=== PATIENT | female | born 1970 | race Caucasian/White ===

== ENCOUNTER → 2019-05-30 16:38 | Outpatient (CLI) | payer OTHER, SELFPAY ==
[2019-05-30 17:08] LABS: Strep Grp A by PCR Rapid Negative
== END ==
PROVIDERS: Visit Provider Physician Assistant
DX: J02.9 Acute pharyngitis, unspecified (principal)
CPT/HCPCS: 87070; 87651

== ENCOUNTER → 2020-07-21 08:54 | Outpatient (CLI) | payer OTHER, SELFPAY ==
[2020-07-21] MEDS: COVID-19 VACC #1, MRNA(MOD) 100 MCG/0.5 ML VIAL IM (09:08)
== END ==
PROVIDERS: Visit Provider Internal Medicine
DX: Z23 Encounter for immunization (principal)
CPT/HCPCS: 0011A; 91301

== ENCOUNTER → 2020-08-18 08:58 | Outpatient (CLI) | payer OTHER, SELFPAY ==
[2020-08-18] MEDS: COVID-19 VACC #2, MRNA(MOD) 100 MCG/0.5 ML VIAL IM (09:04)
== END ==
PROVIDERS: Visit Provider Internal Medicine
DX: Z23 Encounter for immunization (principal)
CPT/HCPCS: 0012A; 91301

== ENCOUNTER → 2020-09-26 09:25 | Outpatient (CLI) | payer OTHER, SELFPAY ==
--- NOTE | 2020-09-26 09:26 | DI.RAD.S_ITS ---
PROCEDURE: XR FOOT LT MIN 3V INDICATIONS: L foot injury, pain, swelling TECHNIQUE: 3 views of the foot were acquired. COMPARISON: None. FINDINGS: Bones: No fractures or dislocations. Bipartite tibial sesamoid bone. Small plantar calcaneal spur. No suspicious bony lesions. Soft tissues: No tibiotalar joint effusion. Achilles tendon appears normal. IMPRESSION: No acute osseous abnormality. Dictated by: Dharmesh Pierre M.D. on 09/26/2020 at 10:09 Approved by: Dharmesh Pierre M.D. on 09/26/2020 at 10:11
== END ==
PROVIDERS: PCP Family Medicine; Referring Provider Physician Assistant; Visit Provider Physician Assistant
DX: S99.922A Unspecified injury of left foot, initial encounter (principal)
CPT/HCPCS: 73630

== ENCOUNTER 2021-12-16 14:25 | Emergency (ER) | payer OTHER, SELFPAY ==
[2021-12-16 14:34] VITALS: BP 166/98; PULSE 77; RESP 16; TEMP 36.6; O2SAT 100
[2021-12-16 14:52] LABS: Add Manual Diff / Slide Review NO; Basophils Absolute Auto 0 /uL (0-100); Basophils Percent Auto 0.6 % (0-2); Eosinophils Absolute Auto 200 /uL (0-450); Eosinophils Percent Auto 4.5 % (2-4); Hematocrit 39.8 % (36-46); Hemoglobin 13.9 g/dL (12.0-16.0); Lymphocytes Absolute Auto 1500 /uL (1100-4500); Lymphocytes Percent Auto 27.2 % (25-40); Mean Corpuscular HGB Conc 35.1 % (30-36); Mean Corpuscular Hemoglobin 31.1 PG (26-34); Mean Corpuscular Volume 88.8 fL (80-100); Monocytes Absolute Auto 400 /uL (0-900); Monocytes Percent Auto 7.8 % (3-14); Neutrophils Absolute Auto 3300 /uL (1500-7000); Neutrophils Percent Auto 59.9 % (50-75); Platelet Count 219 X10^3/uL (150-400); Red Blood Cell Count 4.48 X10^6/uL (4.0-5.2); Red Cell Distribution Width 12.3 % (11.6-14.8); White Blood Cell Count 5.5 X10^3/uL (4.5-11.0)
--- NOTE | 2021-12-16 14:52 | DI.US.S_ITS ---
PROCEDURE: US ABDOMEN LIMITED INDICATIONS: RIGHT UPPER QUADRANT PAIN. TECHNIQUE: Real-time scanning was performed of the abdominal and retroperitoneal organs, with image documentation. COMPARISON: None. FINDINGS: Liver: Homogeneous echotexture. No evidence of focal mass lesion. No intra hepatic biliary ductal dilatation Gallbladder: Gallbladder distension. Cholelithiasis noted. No gallbladder wall thickening, pericholecystic fluid or Ag sign Common Bile Duct: 4.8 mm. Pancreas: Pancreatic simple cyst measures 4.84.1 mm IMPRESSION: 1. Cholelithiasis and distended gallbladder without ultrasound evidence of acute cholecystitis. 2. Incidental tiny pancreatic simple cyst Approved by: Mike Maria M.D. on 12/16/2021 at 15:02
[2021-12-16 15:01] LABS: Alanine Aminotransferase 21 IU/L (<35); Albumin 4.4 g/dL (3.5-5.0); Albumin Globulin Ratio 1.6 (1.0-2.8); Alkaline Phosphatase 64 U/L (38-126); Aspartate Aminotransferase 26 IU/L (14-36); BUN Creatinine Ratio 14.9 (6-22); Bilirubin Total 0.4 mg/dL (0.2-1.3); Blood Urea Nitrogen 11 mg/dL (7-17); Calcium 9.2 mg/dL (8.4-10.2); Carbon Dioxide 25 mmol/L (22-32); Chloride 107 mmol/L (98-107); Estimated Glomerular Filt Rate > 60 mL/min (>60); Globulin 2.7 g/dL (1.7-4.1); Glucose 106 mg/dL (70-100); HEMOLYSIS < 15 (0-50); Lipase 91 U/L (23-300); Sodium 138 mmol/L (137-145); Total Protein 7.1 g/dL (6.3-8.2)
--- NOTE | 2021-12-16 19:27 | ED_ITS ---
HPI - General Adult General Chief complaint: Abdominal Pain Stated complaint: Rt Adb Pain/Dizzy/Nausea Time Seen by Provider: 12/16/21 19:26 Source: patient Mode of arrival: Ambulatory History of Present Illness HPI narrative: Otherwise healthy postmenopausal 51-year-old woman presents with acute right upper abdominal pain that radiates through to her back starting around noon today after eating a bagel with avocado. She has not had previous symptoms or problems. She denies fever, cough, chills, vomiting, diarrhea, change to the color of her stools, rashes, chest pain, palpitations. She has not had abdominal surgery and does still have her gallbladder in place. Related Data Home Medications Medication Instructions Recorded Confirmed acetaminophen 325 mg capsule 650 mg PO Q6H PRN 05/30/19 09/26/20 (Tylenol) ibuprofen 200 mg capsule 400 mg PO Q8H PRN 05/30/19 09/26/20 Allergies Allergy/AdvReac Type Severity Reaction Status Date / Time No Known Drug Allergies Allergy Unverified 09/26/20 09:05 Review of Systems Review of Systems Narrative: Remainder of complete review of systems is otherwise unremarkable except for karena t included in the HPI. Patient History Medical History Hemorrhoid Social History Smoking Status: Former smoker Smoking Status: Former smoker Exam Initial Vital Signs Initial Vital Signs: Vital Signs Temperature 97.9 F 12/16/21 14:34 Pulse Rate 77 12/16/21 14:34 Respiratory Rate 16 12/16/21 14:34 Blood Pressure 166/98 H 12/16/21 14:34 Pulse Oximetry 100 12/16/21 14:34 Oxygen Delivery Method 12/16/21 14:34 General: Healthy appearing, in no acute distress. Able to give a complete and coherent history. Well-nourished well-developed HEENT: Moist mucous membranes, normal sclera with reactive pupils, Respiratory: Lungs are clear to auscultation, no wheezing no rales no rhonchi. Full and symmetrical air movement Cardiac: Regular rate and rhythm no murmurs no bruits Abdomen: Soft, right upper quadrant tenderness without rebound or guarding, good bowel tones, no flank pain Skin: Warm and dry, no rashes Neurologic: Grossly neurologically intact with no obvious asymmetries or abnormalities Extremities: No trauma, well perfused Psych: Cooperative, appropriate insight and affect Course Orders Ordered: ED Orders 12/16/21 14:37 EKG-12 Lead Stat 12/16/21 14:43 Complete Blood Count AUTO DIFF Stat Comprehensive Metabolic Panel Stat Lipase Stat 12/16/21 14:52 US abdomen limited Stat Ketorolac Tromethamine (Ketorolac 30 Mg/Ml Vial) 15 mg IV NOW ONE Stop: 12/16/21 19:40 Oxycodone/Acetaminophen (Oxycodone/Acetaminophen 5/325 Tablet) 1 tab PO NOW ONE Stop: 12/16/21 19:40 Oxycodone/Acetaminophen (Oxycodone/Apap 5/325 Prepack) 1 bottle MISC SEEINSTR ONE Stop: 12/16/21 19:40 Vital Signs Vital signs: Vital Signs - 8 hr 12/16/21 14:34 Temperature 97.9 F Pulse Rate 77 Respiratory Rate 16 Blood Pressure 166/98 H Pulse Oximetry 100 Oxygen Delivery Method Room Air Medical Decision Making Lab Data Result diagrams: 12/16/21 14:43 12/16/21 14:43 Labs: Lab Results 12/16/21 12/16/21 Range/Units 14:43 14:43 WBC 5.5 (4.5-11.0) X10^3/uL RBC 4.48 (4.0-5.2) X10^6/uL Hgb 13.9 (12.0-16.0) g/dL Hct 39.8 (36-46) % MCV 88.8 (80-100) fL MCH 31.1 (26-34) PG MCHC 35.1 (30-36) % RDW 12.3 (11.6-14.8) % Plt Count 219 (150-400) X10^3/uL Neut % (Auto) 59.9 (50-75) % Lymph % (Auto) 27.2 (25-40) % Garland % (Auto) 7.8 (3-14) % Eos % (Auto) 4.5 H (2-4) % Baso % (Auto) 0.6 (0-2) % Neut # (Auto) 3300 (1051-8434) /uL Lymph # (Auto) 1500 (9539-6633) /uL Garland # (Auto) 400 (0-900) /uL Eos # (Auto) 200 (0-450) /uL Baso # (Auto) 0 (0-100) /uL Sodium 138 (137-145) mmol/L Potassium 4.0 (3.4-5.1) mmol/L Chloride 107 (98-107) mmol/L Carbon Dioxide 25 (22-32) mmol/L BUN 11 (7-17) mg/dL Creatinine 0.74 (0.52-1.04) mg/dL Estimated GFR > 60 (>60) mL/min BUN/Creatinine Ratio 14.9 (6-22) Glucose 106 H (70-100) mg/dL Calcium 9.2 (8.4-10.2) mg/dL Total Bilirubin 0.4 (0.2-1.3) mg/dL AST 26 (14-36) IU/L ALT 21 (<35) IU/L Alkaline Phosphatase 64 (38-126) U/L Total Protein 7.1 (6.3-8.2) g/dL Albumin 4.4 (3.5-5.0) g/dL Globulin 2.7 (1.7-4.1) g/dL Albumin/Globulin Ratio 1.6 (1.0-2.8) Lipase 91 (23-300) U/L Urine Dip Bedside Urine Glucose Negative Bedside Urine Bilirubin - Negative Bedside Urine Ketone - Negative Urine Specific Astor 1.015 Bedside Urine Occult Blood - Negative Bedside Urine pH 8.0 Bedside Urine Protein - Negative Bedside Urine Urobilinogen - Negative Bedside Urine Nitrite - Negative Bedside Urine Leukocytes - Negative Esterase Point of care testing: Urine Dip Bedside Urine Glucose Negative Bedside Urine Bilirubin - Negative Bedside Urine Ketone - Negative Urine Specific Astor 1.015 Bedside Urine Occult Blood - Negative Bedside Urine pH 8.0 Bedside Urine Protein - Negative Bedside Urine Urobilinogen - Negative Bedside Urine Nitrite - Negative Bedside Urine Leukocytes - Negative Esterase Imaging Data US - abdomen: Radiologist's Impression: FINDINGS: ? Liver:? Homogeneous echotexture.? No evidence of focal mass lesion.? No intra hepatic biliary ductal dilatation ? Gallbladder:? Gallbladder distension.? Cholelithiasis noted.? No gallbladder wall thickening, pericholecystic fluid or Ag sign ? Common Bile Duct:? 4.8 mm. ? Pancreas:? Pancreatic simple cyst measures 4.84.1 mm ? ? ? IMPRESSION: ? 1. Cholelithiasis and distended gallbladder without ultrasound evidence of acute cholecystitis. ? 2. Incidental tiny pancreatic simple cyst ? Approved by: Mike Maria M.D. on 12/16/2021 at 15:02? MDM Narrative Medical decision making narrative: 51-year-old woman with rather classic presentation for cholelithiasis. Today there is no evidence for acute cholecystitis or stones stuck in the neck of the gallbladder. Reviewed diagnosis and findings with her. She will be discharged with small amount of Percocet and instructions to follow-up with [facility] tomorrow. Clearly reviewed with her signs and symptoms of worsening gallbladder symptoms and reasons to return to the emergency department. Questions are answered and she is safe for home discharge Discharge Plan Departure Patient Disposition: Home Clinical Impression: Cholelithiasis Qualifiers: Cholelithiasis location: gallbladder Cholecystitis presence: without cholecystitis Biliary obstruction: without biliary obstruction Qualified Code(s): K80.20 - Calculus of gallbladder without cholecystitis without obst ruction Instructions: DI for Gallstones Activity Restrictions/Additional Instructions: Thank you for coming in today Your ultrasound shows that you have gallstones. These are not currently obstructing and you do not currently have a sick gallbladder, cholecystitis, your lab work is reassuring. I have given you a dose of Toradol and will send you home with small amount of Percocet to help with severe pain. Using 400 mg of ibuprofen (2 txoz-dij-mrndbya pills) and 1 Tylenol every 6 hours can be very helpful in controlling pain and for severe pain 400 mg of ibuprofen and 1 Percocet. At this point, you do not need to emergently have your gallbladder out however do need to be seen by [facility] and discuss when you should have her gallbladder out. Please call their office tomorrow at [phone] and explain your in the emergency department, diagnosed with gallstones and would like to schedule a consultation. If you find that the pain is getting worse, your having persistent vomiting, you develop a fever or your noticing any yellowness, jaundice, to your skin need to return to the emergency department. These are all signs that your gallbladder is actually getting sick an you may need to have an emergent cholecystectomy. Prescriptions: No Action acetaminophen [Tylenol] 325 mg capsule 650 mg PO Q6H PRN ibuprofen 200 mg capsule 400 mg PO Q8H PRN Referrals: Kimberley Yan DO [Primary Care Provider] -
[2021-12-16] MEDS: OXYCODONE/APAP 5/325 PREPACK 1 BOTTLE MISC (19:53)
[2021-12-16] MEDS: OXYCODONE/ACETAMINOPHEN 5/325 TABLET 1 TAB PO (19:54)
[2021-12-16] MEDS: KETOROLAC 30 MG/ML VIAL 15 MG IV (19:54)
[2021-12-16 19:58] VITALS: BP 170/95; PULSE 67; RESP 20; TEMP 36.9; O2SAT 100
== END 2021-12-16 20:16 | disposition home or self-care (01) ==
PROVIDERS: Emergency Medicine; Emergency Provider Emergency Medicine; PCP Family Medicine
DX: K80.20 Calculus of gallbladder without cholecystitis without obstruction (principal)
CPT/HCPCS: 36415; 76705; 80053; 81003; 83690; 85025; 96374; 99284; J1885

== ENCOUNTER 2022-01-02 18:30 | Emergency (ER) | payer OTHER, SELFPAY ==
[2022-01-02 18:38] VITALS: BP 161/98; PULSE 90; RESP 16; TEMP 37.1; O2SAT 100; BMI 22.1
--- NOTE | 2022-01-02 18:44 | DI.US.S_ITS ---
PROCEDURE: US ABDOMEN LIMITED INDICATIONS: RUQ PAIN TECHNIQUE: Real-time focused scanning was performed of the abdomen, with image documentation. COMPARISON: [facility], CT, CT CHEST ABDOMEN PELVIS WITH CONTRAST, 04/24/2021, 10:32. [facility], US, US ABDOMEN LIMITED, 12/16/2021, 15:19. FINDINGS: The included liver is normal in size and echogenicity. A single 9 mm shadowing calculus is seen within the gallbladder. No gallbladder wall thickening or pericholecystic fluid. Sonographic Ag sign is positive. A nonspecific 0.4 cm simple appearing cyst is seen in the pancreas as previously noted. IMPRESSION: 1. Cholelithiasis with positive sonographic Ag sign, but no gallbladder wall thickening or pericholecystic fluid. Acute cholecystitis is felt to be less likely, but is not entirely excluded. 2. Stable nonspecific 4 mm pancreatic cyst. Dictated by: Sesar Ivey M.D. on 01/02/2022 at 19:00 Approved by: Sesar Ivey M.D. on 01/02/2022 at 19:04
--- NOTE | 2022-01-02 18:52 | ED_ITS ---
HPI - Abdominal Pain General Chief Complaint: Abdominal Pain Stated Complaint: PAIN RT. SIDE ABD. HX GALLSTONES Time Seen by Provider: 01/02/22 18:44 Mode of arrival: Family Vehicle History of Present Illness HPI narrative: 51-year-old female former smoker with a known gallstone presents with a chief complaint of severe and worsening right upper quadrant pain over the past 24 hours. She is been seen and evaluated and has ultrasound demonstrating gallstones and has been in touch with Dr. Issa and is scheduled for surgery in a few weeks. She states that she started having increasing and more persistent pain last night and today it is significantly worse. She states the pain is made worse by motion as well as food and drink. It seems to improve with rest. She states that it is severe and burning in nature today. Radiates to her back. She is been significantly nauseated but denies any vomiting. She denies any fever or chills. She has no chest pain or shortness of breath and denies any constipation or diarrhea. Her last food and drink was at 2:00 p.m. today Related Data Home Medications Medication Instructions Recorded Confirmed acetaminophen 325 mg capsule 650 mg PO Q6H PRN 05/30/19 12/28/21 (Tylenol) ibuprofen 200 mg capsule 400 mg PO Q8H PRN 05/30/19 12/28/21 Previous Rx's Medication Instructions Recorded hydrocodone 5 mg-acetaminophen 325 1 tab PO Q4-6H PRN pain #10 tabs 01/02/22 mg tablet ondansetron 4 mg disintegrating 4 mg PO TID-QID PRN nausea and 01/02/22 tablet vomiting #10 tabs Allergies Allergy/AdvReac Type Severity Reaction Status Date / Time No Known Drug Allergies Allergy Unverified 01/02/22 18:40 Review of Systems Review of Systems Narrative: GENERAL: Denies chills, fatigue, malaise, fever, sweats. HEENT: Denies sinus pain, ear pain, sore throat, difficulty swallowing, dizziness. RESPIRATORY: Denies dyspnea, cough, wheezing, hemoptysis, sputum. CARDIOVASCULAR: Denies chest pain, palpitations, orthopnea, edema, GASTROINTESTINAL: See HPI : Denies dysuria, frequency, incontinence, hematuria, urinary retention. MUSCULOSKELETAL: denies weakness, joint pain, or bony pain SKIN: Denies rash, skin lesions, or other NEUROLOGIC: Denies weakness, headache, numbness, change in speech, confusion, seizures, incoordination. PSYCHIATRIC: No concerning psychosocial issues. 12 point review of systems is negative except for those stated above Patient History Medical History Hemorrhoid Surgical History H/O tubal ligation Social History Smoking Status: Former smoker Smoking Status: Former smoker alcohol intake frequency: holidays/special occasions only Substance Use Type: does not use Exam Narrative Exam Narrative: GENERAL: [51] year old patient appears stated age. Well-developed patient, in mild distress. HEAD: Atraumatic. Normocephalic. EYES: Pupils equal round and reactive. Extraocular motions intact. No scleral icterus. No injection or drainage. ENT: Nose without bleeding, purulent drainage. Throat without erythema, tonsillar hypertrophy or exudate. Airway patent. NECK: Trachea midline. Non tender CARDIOVASCULAR: Regular rate and rhythm without murmurs, gallops, or rubs. RESPIRATORY: Clear to auscultation. Breath sounds equal bilaterally. No wheezes, rales, or rhonchi. GASTROINTESTINAL: Abdomen soft, severe epigastric and right upper quadrant pain, positive Ag sign nondistended. EXTREMITIES: No edema or joint tenderness. BACK: Nontender without deformity or crepitance. No flank tenderness. NEURO: AOx3. SKIN: No rash or erythema of visible areas Initial Vital Signs Initial Vital Signs: Vital Signs Temperature 98.7 F 01/02/22 18:38 Pulse Rate 90 01/02/22 18:38 Respiratory Rate 16 01/02/22 18:38 Blood Pressure 161/98 H 01/02/22 18:38 Pulse Oximetry 100 01/02/22 18:38 Oxygen Delivery Method 01/02/22 18:38 Course Orders Ordered: ED Orders 01/02/22 18:44 US abdomen limited Stat 01/02/22 19:00 Complete Blood Count AUTO DIFF Stat Comprehensive Metabolic Panel Stat Lipase Stat Discontinued Medications Hydrocodone Bitart/Acetaminophen (Hydrocodone/Acet 5/325 Prepack) 1 bottle MISC SEEINSTR ONE Stop: 01/02/22 20:42 Last Admin: 01/02/22 20:49 Dose: 1 bottle Documented By: MEGHNA Hydromorphone HCl (Hydromorphone 0.5 Mg Inj) 0.5 mg IV NOW ONE Stop: 01/02/22 18:52 Last Admin: 01/02/22 19:10 Dose: 0.5 mg Documented By: JO ANN Sodium Chloride (Normal Saline 0.9%) 1,000 mls @ 150 mls/hr IV CONT NENA Last Infusion: 01/02/22 21:05 Dose: 0 mls/hr Documented By: Admin: 01/02/22 19:10 Dose: 150 mls/hr Documented By: JO ANN Ondansetron HCl (Ondansetron 4 Mg/2 Ml Inj) 4 mg IV NOW ONE Stop: 01/02/22 18:52 Last Admin: 01/02/22 19:10 Dose: 4 mg Documented By: JO ANN Ondansetron HCl (Ondansetron 4 Mg Odt Prepack) 1 bottle MISC SEEINSTR ONE Stop: 01/02/22 20:42 Last Admin: 01/02/22 20:50 Dose: 1 bottle Documented By: MEGHNA Vital Signs Vital signs: Vital Signs - 8 hr 01/02/22 18:38 01/02/22 19:55 01/02/22 19:59 Temperature 98.7 F Pulse Rate 90 67 Respiratory Rate 16 18 Blood Pressure 161/98 H 150/87 H Pulse Oximetry 100 Oxygen Delivery Method Room Air 01/02/22 19:59 01/02/22 20:00 01/02/22 20:00 Temperature Pulse Rate 65 70 Respiratory Rate 12 Blood Pressure 153/94 H Pulse Oximetry 100 99 Oxygen Delivery Method 01/02/22 20:30 01/02/22 20:30 Temperature Pulse Rate 69 Respiratory Rate 20 Blood Pressure 151/88 H Pulse Oximetry 98 Oxygen Delivery Method MDM - Abdominal Pain Lab Data Result diagrams: 01/02/22 19:00 01/02/22 19:00 Labs: Lab Results 01/02/22 01/02/22 Range/Units 19:00 19:00 WBC 6.5 (4.5-11.0) X10^3/uL RBC 4.78 (4.0-5.2) X10^6/uL Hgb 14.7 (12.0-16.0) g/dL Hct 42.5 (36-46) % MCV 89.0 (80-100) fL MCH 30.7 (26-34) PG MCHC 34.5 (30-36) % RDW 12.2 (11.6-14.8) % Plt Count 228 (150-400) X10^3/uL Neut % (Auto) 43.9 L (50-75) % Lymph % (Auto) 41.7 H (25-40) % Ray % (Auto) 6.6 (3-14) % Eos % (Auto) 6.5 H (2-4) % Baso % (Auto) 1.3 (0-2) % Neut # (Auto) 2900 (3366-4832) /uL Lymph # (Auto) 2700 (4476-9874) /uL Ray # (Auto) 400 (0-900) /uL Eos # (Auto) 400 (0-450) /uL Baso # (Auto) 100 (0-100) /uL Sodium 138 (137-145) mmol/L Potassium 3.7 (3.4-5.1) mmol/L Chloride 104 (98-107) mmol/L Carbon Dioxide 25 (22-32) mmol/L BUN 12 (7-17) mg/dL Creatinine 0.93 (0.52-1.04) mg/dL Estimated GFR > 60 (>60) mL/min BUN/Creatinine Ratio 12.9 (6-22) Glucose 89 (70-100) mg/dL Calcium 9.4 (8.4-10.2) mg/dL Total Bilirubin 0.5 (0.2-1.3) mg/dL AST 25 (14-36) IU/L ALT 18 (<35) IU/L Alkaline Phosphatase 70 (38-126) U/L Total Protein 7.8 (6.3-8.2) g/dL Albumin 4.9 (3.5-5.0) g/dL Globulin 2.9 (1.7-4.1) g/dL Albumin/Globulin Ratio 1.7 (1.0-2.8) Lipase 217 (23-300) U/L [facility] Narrative Medical decision making narrative: Patient with known gallbladder disease presents with worsening right upper quadrant pain with radiation to her back. It is worse when she moves and worse when she eats. Thankfully, labs and ultrasound are reassuring and there is no evidence of the need for emergent surgery. Her pain is well controlled and she is tolerating orals. She is given extensive return precautions and questions have been answered to her apparent satisfaction Discharge Plan Departure Patient Disposition: Home Clinical Impression: Gallbladder pain Instructions: Gallstones Activity Restrictions/Additional Instructions: *You have been diagnosed with [abdominal pain likely due to gallstones] * As we discussed your history and physical exam as well as labs and imaging are very reassuring. There is no evidence of any severe diagnoses that would require a specific or immediate intervention. *What to do: *Please continue to take your regular medications as directed. [x ] New medication prescriptions sent to your pharmacy: [[facility]] *Please follow up with Dr. Issa as plannedLet them know you were seen in the Emergency Department and that we ask that you be seen in follow up. We will electronically transmit a record of today's note *Please consider a clear liquid diet for the next 24-48 hours and then slowly advance to regular as tolerated. Also, try to avoid alcohol, nicotine, caffeine, spicy, acidic or fatty foods as this may worsen your symptoms *Return to Emergency Department if you should have any new, worsening or concerning symptoms, such as [fever greater than 101 F, shaking chills, worsening pain, persistent vomiting or other bothersome symptoms] Prescriptions: New hydrocodone-acetaminophen 5-325 mg tablet 1 tab PO Q4-6H PRN (Reason: pain) Qty: 10 0RF ondansetron 4 mg tablet,disintegrating 4 mg PO TID-QID PRN (Reason: nausea and vomiting) Qty: 10 0RF No Action acetaminophen [Tylenol] 325 mg capsule 650 mg PO Q6H PRN ibuprofen 200 mg capsule 400 mg PO Q8H PRN Referrals: Liseth Singh PA-C [Primary Care Provider] - Visit Report Forms: Patient Portal/API
[2022-01-02] MEDS: HYDROMORPHONE 0.5 MG INJ IV (19:10)
[2022-01-02] MEDS: SODIUM CHLORIDE 0.9% 1,000 ML 150 ML IV (19:10)
[2022-01-02] MEDS: ONDANSETRON 4 MG/2 ML INJ IV (19:10)
[2022-01-02 19:14] LABS: Add Manual Diff / Slide Review NO; Basophils Absolute Auto 100 /uL (0-100); Basophils Percent Auto 1.3 % (0-2); Eosinophils Absolute Auto 400 /uL (0-450); Eosinophils Percent Auto 6.5 % (2-4); Hematocrit 42.5 % (36-46); Hemoglobin 14.7 g/dL (12.0-16.0); Lymphocytes Absolute Auto 2700 /uL (1100-4500); Lymphocytes Percent Auto 41.7 % (25-40); Mean Corpuscular HGB Conc 34.5 % (30-36); Mean Corpuscular Hemoglobin 30.7 PG (26-34); Monocytes Absolute Auto 400 /uL (0-900); Monocytes Percent Auto 6.6 % (3-14); Neutrophils Absolute Auto 2900 /uL (1500-7000); Neutrophils Percent Auto 43.9 % (50-75); Platelet Count 228 X10^3/uL (150-400); Red Blood Cell Count 4.78 X10^6/uL (4.0-5.2); Red Cell Distribution Width 12.2 % (11.6-14.8); White Blood Cell Count 6.5 X10^3/uL (4.5-11.0)
[2022-01-02 19:23] LABS: Alanine Aminotransferase 18 IU/L (<35); Albumin 4.9 g/dL (3.5-5.0); Albumin Globulin Ratio 1.7 (1.0-2.8); Alkaline Phosphatase 70 U/L (38-126); Aspartate Aminotransferase 25 IU/L (14-36); BUN Creatinine Ratio 12.9 (6-22); Bilirubin Total 0.5 mg/dL (0.2-1.3); Blood Urea Nitrogen 12 mg/dL (7-17); Calcium 9.4 mg/dL (8.4-10.2); Carbon Dioxide 25 mmol/L (22-32); Chloride 104 mmol/L (98-107); Estimated Glomerular Filt Rate > 60 mL/min (>60); Globulin 2.9 g/dL (1.7-4.1); Glucose 89 mg/dL (70-100); HEMOLYSIS 16 (0-50); Lipase 217 U/L (23-300); Potassium 3.7 mmol/L (3.4-5.1); Sodium 138 mmol/L (137-145); Total Protein 7.8 g/dL (6.3-8.2)
[2022-01-02 19:55] VITALS: PULSE 67; RESP 18
[2022-01-02 19:59] VITALS: BP 150/87; PULSE 65; O2SAT 100
[2022-01-02 20:00] VITALS: BP 153/94; PULSE 70; RESP 12; O2SAT 99
[2022-01-02 20:30] VITALS: BP 151/88; PULSE 69; RESP 20; O2SAT 98
[2022-01-02] MEDS: HYDROCODONE/ACET 5/325 PREPACK 1 BOTTLE MISC (20:49)
[2022-01-02] MEDS: ONDANSETRON 4 MG ODT PREPACK 1 BOTTLE MISC (20:50)
== END 2022-01-02 21:06 | disposition home or self-care (01) ==
PROVIDERS: Emergency Provider Emergency Medicine; PCP Physician Assistant
DX: K82.9 Disease of gallbladder, unspecified (principal)
CPT/HCPCS: 36415; 76705; 80053; 83690; 85025; 96361; 96374; 96375; 99284; J1170; J2405

== ENCOUNTER → 2022-01-03 10:40 | Outpatient (CLI) | payer OTHER, SELFPAY ==
[2022-01-03 11:30] LABS: COVID19 -Nasal RAPID Negative (Negative)
== END ==
PROVIDERS: PCP Physician Assistant; Visit Provider Surgery
DX: Z01.812 Encounter for preprocedural laboratory examination (principal); Z20.822 Contact with and (suspected) exposure to COVID-19
CPT/HCPCS: 87635; C9803

== ENCOUNTER 2022-01-04 12:34 | Day surgery (SDC) | payer OTHER, SELFPAY ==
[2022-01-03 10:36] VITALS: BMI 22.1
[2022-01-04] VITALS (7 sets, daily range): BP systolic 141–164; BP diastolic 90–99; PULSE 74–120; RESP 10–17; TEMP 36.6–36.9; O2SAT 99–100; BMI 22.1
--- NOTE | 2022-01-04 | PATH_ITS ---
[facility] Accession Number: [id number] . 01 Material submitted: . PART A: gallbladder - GALLBLADDER PART B: liver - RIGHT HEPATIC LOBE MASS . 01 Diagnosis: A. Gallbladder, Cholecystectomy: Chronic cholecystitis, cholesterolosis, and cholelithiasis. One benign cystic duct lymph node (0/1). . B. Right hepatic lobe mass, resection: Benign cavernous hemangioma (3.7 x 2.3 x 1.5 cm). [facility] 01/09/2022 1520 Local . 01 Electronically signed: . Jeana Espinosa MD, Pathologist NPI- [id number] . 01 Gross description: . A. Received in formalin labeled with the patient's name and gallbladder, and consists of an intact gallbladder measuring 6.2 x 2.0 x 1.8 cm. The serosa is green and smooth with all hepatic surfaces rough and unremarkable. The cystic duct is received closed with a clamp, is inked blue, an intact lymph node candidate is identified measuring 1 cm in greatest dimension. Opening the specimen reveals the lumen to be filled with dark green viscous bile, and a single, rough, bosselated, dark green calculus measuring 0.7 cm in greatest dimension. The mucosa is green and velvety with no areas of discoloration, polyps, or lesions identified, and the mejia average 0.2 cm thick. Flight Purser sections to include the cystic duct margin, intact lymph node candidate, and full thickness sections are submitted in cassette A1. . B. Received in formalin labeled with the patient's name and right hepatic lobe mass, and consists of a 7 gram, dark brown, nodular fragment of tissue measuring 3.7 x 2.3 x 1.5 cm. The cauterized margin measures 3.1 cm in length and is inked black. A defect measuring 2.1 cm in length and 1 cm deep is identified opposite the margin and perpendicular to the margin. The capsular surface adjacent to this defect is inked orange. Sectioning reveals a dark brown, congested cut surface with no lesions identified. The specimen is submitted entirely in cassettes B5-B6. ([id number]) /VIVIANA 01/09/2022 1521 Local . 01 Microscopic: . . . 01 Pathologist provided ICD-10: K81.1, D18.03 . 01 CPT . 986767, 588848 Specimen Comment: A courtesy copy of this report has been sent to Pathology Performed at: 01 [facility] [address], [place], [place] [id number] MD Kevin Thompson MD Phone: [phone]
[2022-01-04] MEDS: LACTATED RINGERS 1,000 ML 42 ML IV ×2 (13:21→16:19)
--- NOTE | 2022-01-04 14:54 | PM.PREOP ---
Pre-operative Note COVID-19 COVID-19 status: Negative Interval Note History & Physical reviewed/Exam performed by Physician: Yes Changes to H&P: No ASA Class (for procedural sedation): II
[2022-01-04] MEDS: CEFAZOLIN 2 GM/100 ML PREMIX 100 ML IV (15:23)
--- NOTE | 2022-01-04 15:43 | SUR.OPER ---
Supine on padded OR bed, head on pillow, arms secured on padded arm boards at <90 degrees abduction, legs uncrossed, safety belt at thigh, tape over blanket over lower legs. Foot board in place.
[2022-01-04] MEDS: BUPIVACAINE 0.5% W/ EPI (PF) 30 ML VIAL INJ (15:52)
--- NOTE | 2022-01-04 17:29 | P.OP_ITS ---
Procedure & Clinicians Procedure: laparoscopic cholecystectomy, liver biopsy Same procedure as scheduled: No Indications: 51 year old female presents with typical signs and symptoms of biliary cholic. Surgeon: Adriane Sanchez Click Yes if Unassisted: Yes Anesthesia Type: General Operative Notes Findings: Relatively normal appearing gallbladder with stones. Right hepatic lobe mass. Well circumscribed and vascular appearing. Closure Type: primary Specimen(s): other (1. Right hepatic lobe, 2. gallbladder.) Estimated Blood Loss (mL): 50 Blood products transfused: none Procedure in detail: S is 51-year-old female who presented to the operating room for a cholecystectomy. She had been scheduled a few weeks out but was having a lot of right upper quadrant abdominal pain and had been to the ER twice and therefore wished to have surgery sooner. I was able to accommodate that on my schedule. And I discussed with her her symptoms her workup and her consent for lapa roscopic cholecystectomy including risks benefits and alternatives. She fully understood and wished to proceed with surgery. The patient was taken to the operating room and placed supine on the operating room table with arms extended. A time-out was performed, preoperative antibiotics were provided bilateral SCDs were in place general endotracheal anesthesia was induced the abdomen was prepped and draped in the usual sterile fashion the area below the umbilicus was infused with local anesthetic and incised with an 11 blade scalpel the incision was carried down to the anterior abdominal wall fascia using electrocautery and the fascia was doubly grasped and elevated entered sharply using an 11 blade scalpel under direct visualization Tony trocar was then placed into the abdomen the abdomen was insufflated and inspected. There was no evidence of trocar injury appreciated no fluid in the abdomen the gallbladder was seen and appeared normal. At this point a mass on the right hepatic lobe was seen. It was sort of pedunculated and vascular appearing it seemed well circumscribed. Photographs were taken. At this point I decided to proceed with cholecystectomy and continued on to place the accessory trocars in the usual position subxiphoid subcostal and lateral 3 5 mm incisions were made and trocars were placed. The gallbladder was then grasped and elevated cephalad and dissection of the critical view commenced. I used a combination of electrocautery and Sunni dissectors to create a critical view I then doubly clipped and ligated a accessory artery, the cystic duct. And finally a larger artery behind them. The gallbladder was then relieved from the liver bed using electrocautery. I left a small attachment of the gallbladder as retraction device as I addressed the mass on the hepatic lobe. There were some adhesive attachments which were taken down with sharp scissor. Electrocautery was used for a few very small vascular segments of that. The mass was relieved from the rest of the liver using a LigaSure device. The site of the biopsy was very dry. I did not set the mass down, I continued to hold it while a Endo-Catch bag was placed through the umbilical port site the mass was placed into the bag and the mass was removed. I then replaced the trocar and liberated the remainder of the gallbladder and placed the gallbladder into a bag removed and the usual way. I did need to extend the fascial incision by about 3 mm to accommodate both the mass and the gallbladder. The abdomen was then desufflated. I had previously placed fascial sutures in the umbilical fascia and placed an additional interrupted 0 Vicryl suture be low to accommodate the larger fascial defect. The fascia was then closed and the abdomen the skin was closed with a running Monocryl and dressed with Steri-Strips and Band-Aids. Both the mass and the gallbladder was sent as separate specimens to pathology. Patient tolerated the procedure well in good condition to the postoperative care unit the blood loss was minimal. Complications: none Post-operative Condition: stable Disposition: PACU
[2022-01-04] MEDS: OXYCODONE IR 5 MG TABLET PO (17:39)
[2022-01-04] MEDS: ONDANSETRON 4 MG/2 ML INJ IV (17:39)
[2022-01-04] MEDS: ACETAMINOPHEN 325 MG TABLET 650 MG PO (17:39)
--- NOTE | 2022-01-04 18:29 | SUR.PHASEII ---
181: Pt A&Ox4, denies distress, VSS, right lateral dressing has scant amt of drainage otherwise dressings c/d/i, and ready to discharge home. Discharge instructions reviewed with pt and daughter with time allowed for questions. IV DC'd intact. Pt transported to ER entrance where daughter was waiting to transport pt home. Pt transferred to car independently and was left in daughters care in stable condition.
== END 2022-01-04 18:20 | disposition home or self-care (01) ==
PROVIDERS: PCP Family Medicine; Referring Provider Surgery; Visit Provider Surgery
PROC: 0FT44ZZ Resection of Gallbladder, Percutaneous Endoscopic Approach (ICD-10-PCS; CPT 47562; principal; 2022-01-04 13:45)
DX: K80.10 Calculus of gallbladder with chronic cholecystitis without obstruction (principal); D18.03 Hemangioma of intra-abdominal structures
CPT/HCPCS: 47562; J0690; J1100; J2250; J2405; J2704; J3010

== ENCOUNTER → 2022-01-11 14:46 | Outpatient (CLI) | payer OTHER, SELFPAY ==
[2022-01-11 14:59] LABS: Add Manual Diff / Slide Review NO; Basophils Absolute Auto 0 /uL (0-100); Basophils Percent Auto 0.6 % (0-2); Eosinophils Absolute Auto 400 /uL (0-450); Eosinophils Percent Auto 6.1 % (2-4); Hematocrit 41.9 % (36-46); Hemoglobin 14.5 g/dL (12.0-16.0); Lymphocytes Absolute Auto 1900 /uL (1100-4500); Lymphocytes Percent Auto 29.3 % (25-40); Mean Corpuscular HGB Conc 34.6 % (30-36); Mean Corpuscular Volume 89.5 fL (80-100); Monocytes Absolute Auto 600 /uL (0-900); Monocytes Percent Auto 8.5 % (3-14); Neutrophils Absolute Auto 3700 /uL (1500-7000); Neutrophils Percent Auto 55.5 % (50-75); Platelet Count 231 X10^3/uL (150-400); Red Blood Cell Count 4.68 X10^6/uL (4.0-5.2); Red Cell Distribution Width 12.1 % (11.6-14.8); White Blood Cell Count 6.6 X10^3/uL (4.5-11.0)
[2022-01-11 15:13] LABS: Alanine Aminotransferase 20 IU/L (<35); Albumin 4.5 g/dL (3.5-5.0); Albumin Globulin Ratio 1.6 (1.0-2.8); Alkaline Phosphatase 75 U/L (38-126); Aspartate Aminotransferase 26 IU/L (14-36); Bilirubin Total 0.3 mg/dL (0.2-1.3); Blood Urea Nitrogen 15 mg/dL (7-17); Calcium 9.1 mg/dL (8.4-10.2); Carbon Dioxide 25 mmol/L (22-32); Chloride 103 mmol/L (98-107); Estimated Glomerular Filt Rate > 60 mL/min (>60); Globulin 2.9 g/dL (1.7-4.1); Glucose 99 mg/dL (70-100); HEMOLYSIS < 15 (0-50); Sodium 138 mmol/L (137-145); Total Protein 7.4 g/dL (6.3-8.2)
== END ==
PROVIDERS: PCP Family Medicine; Referring Provider Surgery; Visit Provider Surgery
DX: R10.9 Unspecified abdominal pain (principal); Z90.49 Acquired absence of other specified parts of digestive tract
CPT/HCPCS: 36415; 80053; 85025

== ENCOUNTER → 2022-01-18 15:21 | Outpatient (CLI) | payer OTHER, SELFPAY ==
--- NOTE | 2022-01-18 15:26 | DI.US.S_ITS ---
PROCEDURE: US ABDOMEN COMPLETE INDICATIONS: Post surgical abdominal pain TECHNIQUE: Real-time scanning was performed of the abdominal and retroperitoneal organs, with image documentation. COMPARISON: [facility], CT, CT CHEST ABDOMEN PELVIS WITH CONTRAST, 04/24/2021, 10:32. [facility], US, US ABDOMEN LIMITED, 12/16/2021, 15:19. [facility], US, US ABDOMEN LIMITED, 01/02/2022, 19:26. FINDINGS: Liver: Liver is normal in size and homogeneous in echotexture. Gallbladder: Recently removed. Biliary ducts: Intrahepatic bile ducts are non-dilated. Extrahepatic bile duct caliber measures 7 mm. Normal is 6-7 mm or less in diameter, or 10 mm or less post-cholecystectomy. Pancreas: Visualized portions of the pancreas are sonographically normal. Spleen: Spleen is normal in size and homogeneous in echotexture. Kidneys: Kidneys are normal in size and echotexture. Right kidney measures 9.5 cm long; left kidney measures 9.3 cm long. No hydronephrosis or nephrolithiasis. No solid masses. Aorta: Visualized aorta is normal in caliber at less than 3 cm. Iliacs: Proximal common iliac arteries are normal in caliber at less than 2.5 cm. IVC: Intrahepatic inferior vena cava is patent. Miscellaneous: No free abdominal fluid. Dedicated scanning is performed at the incision sites. No focal soft tissue abnormalities can be seen at these sites. IMPRESSION: Status post cholecystectomy, without complication observed. No significant ultrasound abnormality can be seen at the incision sites. Dictated by: Adam Cheng M.D. on 01/18/2022 at 17:05 Approved by: Adam Cheng M.D. on 01/18/2022 at 17:07
[2022-01-18 16:56] LABS: Add Manual Diff / Slide Review NO; Basophils Absolute Auto 0 /uL (0-100); Basophils Percent Auto 0.4 % (0-2); Eosinophils Absolute Auto 300 /uL (0-450); Eosinophils Percent Auto 6.3 % (2-4); Lymphocytes Absolute Auto 1400 /uL (1100-4500); Mean Corpuscular HGB Conc 34.9 % (30-36); Mean Corpuscular Hemoglobin 31.2 PG (26-34); Mean Corpuscular Volume 89.3 fL (80-100); Monocytes Absolute Auto 400 /uL (0-900); Monocytes Percent Auto 7.6 % (3-14); Neutrophils Absolute Auto 2900 /uL (1500-7000); Neutrophils Percent Auto 57.7 % (50-75); Platelet Count 241 X10^3/uL (150-400); Red Blood Cell Count 4.48 X10^6/uL (4.0-5.2); White Blood Cell Count 5.1 X10^3/uL (4.5-11.0)
[2022-01-18 17:30] LABS: Alanine Aminotransferase 17 IU/L (<35); Albumin 4.3 g/dL (3.5-5.0); Albumin Globulin Ratio 1.6 (1.0-2.8); Alkaline Phosphatase 67 U/L (38-126); Aspartate Aminotransferase 22 IU/L (14-36); BUN Creatinine Ratio 13.3 (6-22); Bilirubin Total 0.2 mg/dL (0.2-1.3); Blood Urea Nitrogen 10 mg/dL (7-17); Carbon Dioxide 29 mmol/L (22-32); Chloride 104 mmol/L (98-107); Estimated Glomerular Filt Rate > 60 mL/min (>60); Globulin 2.7 g/dL (1.7-4.1); Glucose 85 mg/dL (70-100); HEMOLYSIS < 15 (0-50); Lipase 84 U/L (23-300); Potassium 3.6 mmol/L (3.4-5.1); Sodium 141 mmol/L (137-145)
== END ==
PROVIDERS: PCP Family Medicine; Referring Provider Surgery; Visit Provider Surgery
DX: Z90.49 Acquired absence of other specified parts of digestive tract (principal); R10.9 Unspecified abdominal pain; G89.18 Other acute postprocedural pain; Z13.29 Encounter for screening for other suspected endocrine disorder; Z13.220 Encounter for screening for lipoid disorders; Z13.0 Encounter for screening for diseases of the blood and blood-forming organs and certain disorders involving the immune mechanism; R51.9 Headache, unspecified; H53.9 Unspecified visual disturbance; E56.9 Vitamin deficiency, unspecified
CPT/HCPCS: 36415; 76700; 80053; 83690; 85025

== ENCOUNTER → 2022-02-13 09:36 | Outpatient (CLI) | payer OTHER, SELFPAY ==
[2022-02-13 10:29] LABS: Add Manual Diff / Slide Review NO; Basophils Absolute Auto 0 /uL (0-100); Basophils Percent Auto 0.3 % (0-2); Eosinophils Absolute Auto 200 /uL (0-450); Eosinophils Percent Auto 4.7 % (2-4); Hematocrit 40.5 % (36-46); Hemoglobin 13.6 g/dL (12.0-16.0); Lymphocytes Absolute Auto 1400 /uL (1100-4500); Lymphocytes Percent Auto 28.8 % (25-40); Mean Corpuscular HGB Conc 33.5 % (30-36); Mean Corpuscular Hemoglobin 30.5 PG (26-34); Monocytes Absolute Auto 400 /uL (0-900); Neutrophils Absolute Auto 2800 /uL (1500-7000); Neutrophils Percent Auto 58.2 % (50-75); Platelet Count 214 X10^3/uL (150-400); Red Blood Cell Count 4.45 X10^6/uL (4.0-5.2); Red Cell Distribution Width 12.4 % (11.6-14.8); White Blood Cell Count 4.9 X10^3/uL (4.5-11.0)
[2022-02-13 11:38] LABS: Alanine Aminotransferase 14 IU/L (<35); Albumin 4.3 g/dL (3.5-5.0); Albumin Globulin Ratio 1.7 (1.0-2.8); Alkaline Phosphatase 63 U/L (38-126); Aspartate Aminotransferase 24 IU/L (14-36); Bilirubin Total 0.4 mg/dL (0.2-1.3); Blood Urea Nitrogen 15 mg/dL (7-17); Calcium 9.2 mg/dL (8.4-10.2); Carbon Dioxide 27 mmol/L (22-32); Chloride 104 mmol/L (98-107); Estimated Glomerular Filt Rate > 60 mL/min (>60); Globulin 2.5 g/dL (1.7-4.1); Glucose 103 mg/dL (70-100); HEMOLYSIS < 15 (0-50); Lipase 88 U/L (23-300); Potassium 4.1 mmol/L (3.4-5.1); Sodium 140 mmol/L (137-145); Total Protein 6.8 g/dL (6.3-8.2)
[2022-02-13 13:01] LABS: Appearance Urine UA CLEAR; Bilirubin Urine UA NEGATIVE (NEGATIVE); Color Urine UA YELLOW; Glucose Urine UA NEGATIVE (Negative); Ketones Urine UA NEGATIVE (NEGATIVE); Leukocyte Esterase Urine UA 1+ (NEGATIVE); Nitrite Urine UA NEGATIVE (Negative); Occult Blood Urine UA TRACE-LYSED (Negative); Protein Urine UA NEGATIVE (Negative); Specific Gravity Urine UA <=1.005 (1.000-1.035); Urobilinogen Urine UA 0.2 E.U./dL (0.2)
[2022-02-13 13:18] LABS: RBC Urine None Seen (0-5/HPF); WBC Urine 1-5/HPF (0-5/HPF)
[2022-02-13 13:19] LABS: Bacteria Urine None Seen; Culture Indicated Urine Specimen Cultured; Squamous Epithelial Cell Urine 0-1 /HPF (0-5/HPF)
== END ==
PROVIDERS: PCP Family Medicine; Referring Provider Surgery; Visit Provider Surgery
DX: G89.18 Other acute postprocedural pain (principal)
CPT/HCPCS: 36415; 80053; 81001; 83690; 85025; 87086

== ENCOUNTER → 2022-02-13 09:38 | Outpatient (CLI) | payer OTHER, SELFPAY ==
--- NOTE | 2022-02-13 09:38 | DI.CT.S_ITS ---
PROCEDURE: CT ABDOMEN PELVIS W CON INDICATIONS: ongoing post cholecystectomy pain, nausea. TECHNIQUE: After the administration of intravenous contrast, axial sections acquired from the lung bases to the pubic symphysis. Coronal and sagittal reformats were performed. For radiation dose reduction, the following was used: automated exposure control, adjustment of mA and/or kV according to patient size. COMPARISON: None. FINDINGS: Image quality: Excellent. Lung bases: Unremarkable. Heart: No significant findings. ABDOMEN: Liver: Unremarkable. Small subcentimeter hypodensities likely reflect cyst but too small to characterize by CT Gallbladder: Surgically absent Biliary ducts: Unremarkable. Pancreas: Unremarkable. Spleen: Unremarkable. Adrenal Glands: Unremarkable. Kidneys and Ureters: Unremarkable. Stomach and Bowel: Moderate fecal debris in the right colon Peritoneum: No abnormal intraperitoneal fluid. No free air. Ventral Wall: No hernias. Abdominal Nodes: No retroperitoneal or mesenteric adenopathy by size criteria. Vessels: Atherosclerotic calcification in the abdominal aorta noted without evidence of aneurysm. PELVIS: Pelvic Organs: Unremarkable. Bladder: Unremarkable. Pelvic Nodes: No enlarged lymph nodes. Miscellaneous: No hernias are seen. Surgical clips noted left pelvic sidewall Bones: Unremarkable. IMPRESSION: 1. Moderate fecal debris in the right and transverse colon. Otherwise, no acute CT findings in the abdomen and pelvis. 2. Cholecystectomy. Approved by: Mike Maria M.D. on 02/13/2022 at 11:00
== END ==
PROVIDERS: PCP Family Medicine; Referring Provider Surgery; Visit Provider Surgery
DX: G89.18 Other acute postprocedural pain (principal); R11.0 Nausea; Z90.49 Acquired absence of other specified parts of digestive tract
CPT/HCPCS: 36415; 74177; 80053; 81001; 83690; 85025; 87086; Q9967

== ENCOUNTER → 2023-05-12 15:12 | Outpatient (CLI) | payer OTHER, SELFPAY ==
--- NOTE | 2023-05-12 15:13 | DI.US.S_ITS ---
PROCEDURE: US ABDOMEN LIMITED INDICATIONS: CHRONIC RIGHT UPPER QUADRANT PAIN. H/O HYPODENSITIES ON CT TECHNIQUE: Real-time scanning was performed of the abdominal and retroperitoneal organs, with image documentation. COMPARISON: [facility], CT, CT ABDOMEN PELVIS W CON, 02/13/2022, 11:07. [facility], US, US ABDOMEN COMPLETE, 01/18/2022, 16:08. FINDINGS: Liver: Liver is normal in size and homogeneous in echotexture. A few small echogenic foci measuring no greater than 6 millimeter, presumably small hemangiomas in the absence of malignancy. Gallbladder: Absent. Biliary ducts: Intrahepatic bile ducts are non-dilated. Extrahepatic bile duct caliber measures 3 mm. Normal is 6-7 mm or less in diameter, or 10 mm or less post-cholecystectomy. Pancreas: Visualized portions of the pancreas are sonographically normal. 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 Miscellaneous: No free abdominal fluid. 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 This was not present on prior studies. Recommend CT of the abdomen to determine extent. Ordering provider cannot be contacted due to time of exam. The patient was directed to the ER for a CT. Echogenic foci in the liver measuring no greater than 6 millimeters, presumably hemangiomas in the absence of malignancy history. Dictated by: Иван Perales M.D. on 05/12/2023 at 16:51 Approved by: Иван Perales M.D. on 05/12/2023 at 16:53
--- NOTE | 2023-05-12 15:13 | DI.US.S_ITS ---
PROCEDURE: US PELVIC COMPLETE INDICATIONS: POSTMENOPAUSAL BLEEDING TECHNIQUE: Real-time scanning was performed of the pelvic organs, with image documentation. Additional endovaginal scanning was necessary due to incomplete visualization of the adnexal and endometrial structures by transabdominal scanning. COMPARISON: None. FINDINGS: Uterus: Uterus is anteverted and normal in size at 7.6 x 4.3 x 4.3 cm. The myometrium is shows multiple cystic areas largest 1 measuring 6 mm in largest dimension. The endometrium measures 16.9 mm combined thickness with increased vascularity. Multiple cystic areas are seen in the endometrium largest 1 measuring 4 mm in largest dimension. Ovaries: The right ovary measures 2.9 x 1.8 x 1.9 cm, with a calculated ovarian volume of 5.5 cc. The left ovary measures 1.8 x 1.9 x 0.8 cm, with a calculated ovarian volume of 1.4 cc. The right ovary shows an echogenic shadowing area with comet tail artifact measuring 5 x 5 x 3 mm. Correlate with possible dermoid. Other: No pathologic free abdominal or pelvic fluid. IMPRESSION: 1. Abnormal thickening of the endometrium at 16.9 mm with multiple cystic areas. Correlate with endometrial hyperplasia. Recommend gynecology consult 2. 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 Recommend follow-up ultrasound in 1 year >> We strive to produce accurate, complete, and clear reports of imaging services. To assist us in improving patient care, this report was composed using standard report templates and voice recognition software. Therefore, it may contain abnormal punctuation, insertions and/or omissions. Occasional wrong-word or sound-alike substitutions may occur. Though we review the report and make efforts to correct it, we do recommend that the report be read carefully in proper context to recognize any text inaccuracies. Dictated by: Bello Seals M.D. on 05/13/2023 at 12:38 Approved by: Bello Seals M.D. on 05/13/2023 at 12:48
== END ==
PROVIDERS: PCP Family Medicine; Referring Provider Family Medicine; Visit Provider Family Medicine
DX: I82.220 Acute embolism and thrombosis of inferior vena cava (principal); N95.0 Postmenopausal bleeding; R93.89 Abnormal findings on diagnostic imaging of other specified body structures; K76.89 Other specified diseases of liver; R10.11 Right upper quadrant pain; G89.18 Other acute postprocedural pain; G89.29 Other chronic pain; Z90.49 Acquired absence of other specified parts of digestive tract
CPT/HCPCS: 76705; 76830; 76856

== ENCOUNTER 2023-05-12 16:54 | Emergency (ER) | payer OTHER, SELFPAY ==
[2023-05-12] VITALS (7 sets, daily range): BP systolic 148–170; BP diastolic 91–96; PULSE 72–90; RESP 15–22; TEMP 36.8; O2SAT 98–100; BMI 25.7
--- NOTE | 2023-05-12 17:01 | DI.CT.S_ITS ---
PROCEDURE: CT ABDOMEN PELVIS W CON INDICATIONS: Clot in proximal IVC per abnormal Ultrasound scan TECHNIQUE: After the administration of intravenous contrast, axial sections acquired from the lung bases to the pubic symphysis. Coronal and sagittal reformats were performed. For radiation dose reduction, the following was used: automated exposure control, adjustment of mA and/or kV according to patient size. COMPARISON: [facility], US, US ABDOMEN LIMITED, 05/12/2023, 15:34. [facility], US, US PELVIC COMPLETE, 05/12/2023, 15:33. [facility], CT, CT ABDOMEN PELVIS W CON, 02/13/2022, 11:07. FINDINGS: Image quality: Diagnostic. Lower Chest: No significant findings. ABDOMEN: Liver: No solid mass. Normal size. Mild hepatic steatosis. A 0.6 cm indeterminate hepatic hypodensity in the anterior left hepatic lobe, which was present on 02/13/2022 and appears unchanged, most likely a cyst. Gallbladder: Surgically removed. Biliary ducts: No biliary dilation. Pancreas: No ductal dilation. Spleen: Size is within normal limits. Adrenal Glands: No adrenal nodules. Kidneys and Ureters: No hydronephrosis. No solid mass. No complex renal cystic lesion which requires follow up. Stomach and Bowel: Normal colonic caliber, without significant wall thickening. Mild diverticulosis. No acute diverticulitis. Moderate amount of stool in colon. Peritoneum: No abnormal intraperitoneal fluid. No free air. Ventral Wall: No hernia. Abdominal Nodes: No retroperitoneal or mesenteric adenopathy by size criteria. Vessels: Aorta and inferior vena cava are normal in size. PELVIS: Pelvic Organs: There are hypodensities within the central uterine. Ovaries are not well seen. No free fluid in pelvis. Bladder: Unremarkable. Pelvic Nodes: No enlarged lymph nodes. Miscellaneous: No inguinal hernias are seen. Bones: No aggressive osseous abnormality. Moderate to severe degenerative disc and facet disease in the lower lumbar spine. IMPRESSION: 1. No intraluminal filling defect within the inferior vena cava. 2. Hypodensity within central uterus. The comparison pelvic ultrasound showed thickening of endometrium and cystic changes in myometrium. Recommend nonurgent gynecological MRI for further evaluation. 3. Mild hepatic steatosis. 4. Diverticulosis without diverticulitis. Dictated by: Neftaly Winston M.D. on 05/12/2023 at 17:54 Approved by: Neftaly Winston M.D. on 05/12/2023 at 18:02
--- NOTE | 2023-05-12 17:33 | PC.NURSE ---
Pt denies CP, SOB, leg swelling. States she has been having intermittent abdominal pain since gallbladder surgery back in January 2022. No recent travel, not on any blood thiners. Lungs bases clear bilaterally.
--- NOTE | 2023-05-12 17:57 | ED_ITS ---
HPI - Abdominal Pain General Chief Complaint: Abdominal Pain Stated Complaint: blood clot/ ivc doc refferred Time Seen by Provider: 05/12/23 16:57 Source: patient Mode of arrival: Wheelchair History of Present Illness HPI narrative: Is a 53-year-old female history of cholecystectomy presenting today from the eye department after ultrasounds. She had an outpatient abdominal ultrasound which showed a nonocclusive thrombus associated with the posterior wall of the IVC. She was sent to the ED for further evaluation. Patient seen by you PCP on May 08 for ongoing abdominal pain. She reports that she has been feeling nauseated for months she has not been vomiting no loss of weight. She has chronic abdominal discomfort so much so that it inhibits her from working out, but she was able to hike yesterday. She denies any chest pain or shortness of breath. No fevers chills or sore throat. She apparently was also complaining of some postmenopausal bleeding pelvic ultrasound was ordered along with abdominal ultrasound. Related Data Home Medications Medication Instructions Recorded Confirmed No Known Home Medications 05/08/23 05/08/23 Allergies Allergy/AdvReac Type Severity Reaction Status Date / Time No Known Drug Allergies Allergy Verified 05/12/23 17:01 Patient History Medical History Biliary colic Hemorrhoid Surgical History H/O tubal ligation Social History Smoking Status: Former smoker alcohol intake: current Smoking Status: Former smoker alcohol intake frequency: holidays/special occasions only Substance Use Type: does not use Exam Initial Vital Signs Initial Vital Signs: Vital Signs Pulse Rate 89 05/12/23 17:03 Respiratory Rate 16 05/12/23 17:03 Pulse Oximetry 100 05/12/23 17:03 GENERAL: Alert pleasant well-appearing 53-year-old female and in no acute distress. HEENT: Head atraumatic,EOMI, pupils reactive, face symmetric, moist mucous membranes CARDIOVASCULAR: Regular rate and rhythm without murmurs, rubs or gallops. RESPIRATORY: Breath sounds equal bilaterally, no wheezes rales or rhonchi. ABDOMEN: Soft, very minimal tenderness right upper quadrant no distention no guarding no rebound. Normoactive bowel sounds all 4 quadrants. EXTREMITIES: Normal range of motion, no clubbing or edema. Neurovascularly intact NEUROLOGICAL: Alert and oriented x4.Normal gait and speech. SKIN: Warm, dry, no laceration, no petechiae, no rashes or lesions. Course Orders Ordered: ED Orders 05/12/23 17:01 CT abdomen pelvis w con Stat 05/12/23 17:05 Complete Blood Count AUTO DIFF Stat Comprehensive Metabolic Panel Stat Lipase Stat PT [Prothrombin Time INR] Stat PTT Partial Thromboplastin [place] Stat Troponin & CK Cardiac Panel Stat 05/12/23 17:51 EKG-12 Lead Stat 05/12/23 17:59 EKG-12 Lead Stat Vital Signs Vital signs: Vital Signs - 8 hr 05/12/23 17:03 05/12/23 17:06 05/12/23 17:30 Temperature 98.3 F Pulse Rate 89 89 90 Respiratory Rate 16 20 15 Blood Pressure 170/93 H Pulse Oximetry 100 99 100 Oxygen Delivery Method Room Air 05/12/23 18:00 05/12/23 18:13 05/12/23 18:13 Temperature Pulse Rate 79 72 Respiratory Rate 21 15 Blood Pressure 149/91 H Pulse Oximetry 99 100 Oxygen Delivery Method 05/12/23 18:30 05/12/23 18:30 05/12/23 19:00 Temperature Pulse Rate 72 Respiratory Rate 17 Blood Pressure 161/92 H 148/96 H Pulse Oximetry 100 Oxygen Delivery Method 05/12/23 19:00 Temperature Pulse Rate 74 Respiratory Rate 22 Blood Pressure Pulse Oximetry 98 Oxygen Delivery Method MDM - Abdominal Pain Lab Data 05/12/23 17:05 05/12/23 17:05 Labs: Lab Results 05/12/23 Range/Units 17:05 WBC 6.7 (4.5-11.0) X10^3/uL RBC 4.66 (4.0-5.2) X10^6/uL Hgb 14.4 (12.0-16.0) g/dL Hct 42.6 (36-46) % MCV 91.4 (80-100) fL MCH 30.9 (26-34) PG MCHC 33.8 (30-36) % RDW 13.2 (11.6-14.8) % Plt Count 232 (150-400) X10^3/uL Neut % (Auto) 47.6 L (50-75) % Lymph % (Auto) 36.8 (25-40) % [place] % (Auto) 7.6 (3-14) % Eos % (Auto) 7.5 H (2-4) % Baso % (Auto) 0.5 (0-2) % Neut # (Auto) 3200 (6931-8213) /uL Lymph # (Auto) 2500 (9581-6505) /uL [place] # (Auto) 500 (0-900) /uL Eos # (Auto) 500 H (0-450) /uL Baso # (Auto) 0 (0-100) /uL PT 13.2 H (9.4-12.5) SECONDS INR 1.2 (0.9-1.3) APTT 30 (25.1-36.5) SECONDS Sodium 136 L (137-145) mmol/L Potassium 3.4 (3.4-5.1) mmol/L Chloride 102 (98-107) mmol/L Carbon Dioxide 26 (22-32) mmol/L BUN 11 (7-17) mg/dL Creatinine 0.70 (0.52-1.04) mg/dL Estimated GFR > 60 (>60) mL/min BUN/Creatinine Ratio 15.7 (6-22) Glucose 102 H (70-100) mg/dL Calcium 9.5 (8.4-10.2) mg/dL Total Bilirubin 0.8 (0.2-1.3) mg/dL AST 28 (14-36) IU/L ALT 19 (<35) IU/L Alkaline Phosphatase 71 (38-126) U/L Total Creatine Kinase 75 (30-135) U/L Troponin I < 0.012 (0.01-0.034) ng/mL Total Protein 7.7 (6.3-8.2) g/dL Albumin 4.5 (3.5-5.0) g/dL Globulin 3.2 (1.7-4.1) g/dL Albumin/Globulin Ratio 1.4 (1.0-2.8) Lipase 68 (23-300) U/L Imaging Data CT scan - abdomen/pelvis: Radiologist's Impression: PROCEDURE: CT ABDOMEN PELVIS W CON INDICATIONS: Clot in proximal IVC per abnormal Ultrasound scan TECHNIQUE: After the administration of intravenous contrast, axial sections acquired from the lung bases to the pubic symphysis. Coronal and sagittal reformats were performed. For radiation dose reduction, the following was used: automated exposure control, adjustment of mA and/or kV according to patient size. COMPARISON: [facility], US, US ABDOMEN LIMITED, 05/12/2023, 15:34. [facility], US, US PELVIC COMPLETE, 05/12/2023, 15:33. [facility], CT, CT ABDOMEN PELVIS W CON, 02/13/2022, 11:07. FINDINGS: Image quality: Diagnostic. Lower Chest: No significant findings. ABDOMEN: Liver: No solid mass. Normal size. Mild hepatic steatosis. A 0.6 cm indeterminate hepatic hypodensity in the anterior left hepatic lobe, which was present on 02/13/2022 and appears unchanged, most likely a cyst. Gallbladder: Surgically removed. Biliary ducts: No biliary dilation. Pancreas: No ductal dilation. Spleen: Size is within normal limits. Adrenal Glands: No adrenal nodules. Kidneys and Ureters: No hydronephrosis. No solid mass. No complex renal cystic lesion which requires follow up. Stomach and Bowel: Normal colonic caliber, without significant wall thickening. Mild diverticulosis. No acute diverticulitis. Moderate amount of stool in colon. Peritoneum: No abnormal intraperitoneal fluid. No free air. Ventral Wall: No hernia. Abdominal Nodes: No retroperitoneal or mesenteric adenopathy by size criteria. Vessels: Aorta and inferior vena cava are normal in size. PELVIS: Pelvic Organs: There are hypodensities within the central uterine. Ovaries are not well seen. No free fluid in pelvis. Bladder: Unremarkable. Pelvic Nodes: No enlarged lymph nodes. Miscellaneous: No inguinal hernias are seen. Bones: No aggressive osseous abnormality. Moderate to severe degenerative disc and facet disease in the lower lumbar spine. IMPRESSION: 1. No intraluminal filling defect within the inferior vena cava. 2. Hypodensity within central uterus. The comparison pelvic ultrasound showed thickening of endometrium and cystic changes in myometrium. Recommend nonurgent gynecological MRI for further evaluation. 3. Mild hepatic steatosis. 4. Diverticulosis without diverticulitis. Dictated by: Neftaly Winston M.D. on 05/12/2023 at 17:54 Approved by: Neftaly Winston M.D. on 05/12/2023 at 18:02 US - abdomen: Radiologist's Impression: PROCEDURE: US ABDOMEN LIMITED INDICATIONS: CHRONIC RIGHT UPPER QUADRANT PAIN. H/O HYPODENSITIES ON CT TECHNIQUE: Real-time scanning was performed of the abdominal and retroperitoneal organs, with image documentation. COMPARISON: [facility], CT, CT ABDOMEN PELVIS W CON, 02/13/2022, 11:07. [facility], US, US ABDOMEN COMPLETE, 01/18/2022, 16:08. FINDINGS: Liver: Liver is normal in size and homogeneous in echotexture. A few small echogenic foci measuring no greater than 6 millimeter, presumably small hemangiomas in the absence of malignancy. Gallbladder: Absent. Biliary ducts: Intrahepatic bile ducts are non-dilated. Extrahepatic bile duct caliber measures 3 mm. Normal is 6-7 mm or less in diameter, or 10 mm or less post-cholecystectomy. Pancreas: Visualized portions of the pancreas are sonographically normal. 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 Miscellaneous: No free abdominal fluid. 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 This was not present on prior studies. Recommend CT of the abdomen to determine extent. Ordering provider cannot be contacted due to time of exam. The patient was directed to the ER for a CT. Echogenic foci in the liver measuring no greater than 6 millimeters, presumably hemangiomas in the absence of malignancy history. Dictated by: Иван Perales M.D. on 05/12/2023 at 16:51 ECG Data Interpretation: Normal sinus rhythm rate 68 NH interval 162 QRS [address] changes MDM Narrative Medical decision making narrative: Patient 53-year-old female without significant past medical history presenting today with ongoing abdominal pain sent from DI concern for IVC thrombosis. She has been having some chronic abdominal discomfort and nausea without significant weight loss Blood work has been reviewed: No clinical significance no leukocytosis anemia electrolyte abnormality elevated liver enzyme, negative troponin Imaging reviewed CT does not show thrombosis or other significant abdominal abnormality. 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 At this time no need for anticoagulation. Recommend outpatient follow-up possible GI consultation. Discharge Plan Departure Patient Disposition: Home Clinical Impression: Abdominal pain Instructions: DI for Abdominal Pain-Adult Activity Restrictions/Additional Instructions: *You have been diagnosed with abdominal pain *What to do: At this time no evidence of blood clot in the IVC. Please follow- up with your primary care provider. *Continue to take medications as directed *Follow up with your primary care provider in 2-3 days or call [phone] *Return to ER if you should have increasing pain nausea vomiting passing out chest pain or any new, worsening or concerning symptoms Prescriptions: No Action No Known Home Medications Referrals: Abril Bryan DO [Primary Care Provider] - Stand Alone Forms: Patient Portal/API
--- NOTE | 2023-05-12 17:57 | PC.NURSE ---
Dr. Bonner notified of pt, Dr. Bonner currently not wanting any labs. Continuing to monitor pt for any changes.
[2023-05-12 18:23] LABS: Add Manual Diff / Slide Review NO; Basophils Absolute Auto 0 /uL (0-100); Basophils Percent Auto 0.5 % (0-2); Eosinophils Absolute Auto 500 /uL (0-450); Eosinophils Percent Auto 7.5 % (2-4); Hematocrit 42.6 % (36-46); Hemoglobin 14.4 g/dL (12.0-16.0); Lymphocytes Absolute Auto 2500 /uL (1100-4500); Lymphocytes Percent Auto 36.8 % (25-40); Mean Corpuscular HGB Conc 33.8 % (30-36); Mean Corpuscular Hemoglobin 30.9 PG (26-34); Mean Corpuscular Volume 91.4 fL (80-100); Monocytes Absolute Auto 500 /uL (0-900); Monocytes Percent Auto 7.6 % (3-14); Neutrophils Absolute Auto 3200 /uL (1500-7000); Neutrophils Percent Auto 47.6 % (50-75); Platelet Count 232 X10^3/uL (150-400); Red Blood Cell Count 4.66 X10^6/uL (4.0-5.2); Red Cell Distribution Width 13.2 % (11.6-14.8); White Blood Cell Count 6.7 X10^3/uL (4.5-11.0)
[2023-05-12 18:24] LABS: INR 1.2 (0.9-1.3); Prothrombin Time 13.2 SECONDS (9.4-12.5)
[2023-05-12 18:27] LABS: PTT Partial Thromboplastin Tim 30 SECONDS (25.1-36.5)
[2023-05-12 18:33] LABS: Alanine Aminotransferase 19 IU/L (<35); Albumin 4.5 g/dL (3.5-5.0); Albumin Globulin Ratio 1.4 (1.0-2.8); Alkaline Phosphatase 71 U/L (38-126); Aspartate Aminotransferase 28 IU/L (14-36); BUN Creatinine Ratio 15.7 (6-22); Bilirubin Total 0.8 mg/dL (0.2-1.3); Blood Urea Nitrogen 11 mg/dL (7-17); Calcium 9.5 mg/dL (8.4-10.2); Carbon Dioxide 26 mmol/L (22-32); Chloride 102 mmol/L (98-107); Creatine Kinase 75 U/L (30-135); Estimated Glomerular Filt Rate > 60 mL/min (>60); Globulin 3.2 g/dL (1.7-4.1); Glucose 102 mg/dL (70-100); HEMOLYSIS < 15 (0-50); Lipase 68 U/L (23-300); Potassium 3.4 mmol/L (3.4-5.1); Sodium 136 mmol/L (137-145); Total Protein 7.7 g/dL (6.3-8.2)
[2023-05-12 18:45] LABS: Troponin I < 0.012 ng/mL (0.01-0.034)
== END 2023-05-12 19:43 | disposition home or self-care (01) ==
PROVIDERS: Emergency Provider Emergency Medicine; PCP Family Medicine
DX: I82.220 Acute embolism and thrombosis of inferior vena cava (principal); N95.0 Postmenopausal bleeding; R10.11 Right upper quadrant pain; R11.0 Nausea; G89.18 Other acute postprocedural pain; K76.89 Other specified diseases of liver; R93.89 Abnormal findings on diagnostic imaging of other specified body structures; G89.29 Other chronic pain; Z90.49 Acquired absence of other specified parts of digestive tract
CPT/HCPCS: 36415; 74177; 76705; 76830; 76856; 80053; 82550; 83690; 84484; 85025; 85610; 85730; 93005; 93010; 99284; Q9967

== ENCOUNTER → 2023-05-19 19:25 | Outpatient (CLI) | payer OTHER, SELFPAY ==
--- NOTE | 2023-05-19 19:28 | DI.MRI.S_ITS ---
PROCEDURE: MR PELVIS WO/W CON INDICATIONS: postmen bleeding; follow-up US findings TECHNIQUE: Coronal HASTE, sagittal breath-hold T2 FSE; axial T1 FSE with and without fat saturation through the pelvis. Optional long- and short-axis uterine nonbreath-hold T2 FSE through the uterus. Sagittal or axial dynamic VIBE during administration of contrast. Post-contrast axial or coronal VIBE/2-D FLASH with fat saturation from the iliac crests to the symphysis. Optional diffusion weighted imaging and ADC may be performed. COMPARISON: [facility], US, US PELVIC COMPLETE, 05/12/2023, 15:33. FINDINGS: Image quality: Excellent. Uterus: Uterus is normal in size. Endometrium measures 10 centimeters, abnormal in the setting of postmenopausal bleeding. No abnormal signal extending beyond the endometrium. No h endometrial mass identified. There are small T2 hyperintense focus within the junctional zone. Adnexa: The ovaries are atrophic. Fat containing mass in the right adnexa measuring 1.3 x 1.6 centimeters, most consistent with a dermoid. Urinary system: Bladder wall is normal in thickness. Distal ureters are non distended. Urethra appears normal in morphology. Nodes and vessels: No pelvic or inguinal adenopathy by size criteria. Iliac vessels are normal in size. Bowel and peritoneum: No pathologic free pelvic fluid. Inferior colon and small bowel loops are normal in caliber. Soft tissues: No inguinal hernias. No findings of pelvic floor incompetence in the absence of provocation. Bones: Marrow demonstrates normal overall signal. IMPRESSION: Endometrial thickening, abnormal in the setting postmenopausal bleeding. No measurable mass. Right ovarian dermoid measuring 1.3 x 1.6 centimeters, benign. T2 hyperintense lesions within the junctional zone, most consistent with adenomyosis. Dictated by: Иван Perales M.D. on 05/20/2023 at 9:08 Approved by: Иван Perales M.D. on 05/20/2023 at 9:24
== END ==
LOC: MRI 19:26
PROVIDERS: PCP Family Medicine; Referring Provider Family Medicine; Visit Provider Family Medicine
DX: D27.0 Benign neoplasm of right ovary (principal); R93.89 Abnormal findings on diagnostic imaging of other specified body structures; N85.9 Noninflammatory disorder of uterus, unspecified
CPT/HCPCS: 72197; A9579

== ENCOUNTER 2023-05-27 12:55 | Emergency (ER) | payer OTHER, SELFPAY ==
[2023-05-27 13:01] VITALS: BP 154/84; PULSE 85; RESP 18; TEMP 36.7; O2SAT 100; BMI 25.0
--- NOTE | 2023-05-27 13:43 | ED.BACK ---
HPI - Back Pain/Injury <Zahida Pollack PA-C - Last Filed: 05/27/23 17:53> General Chief Complaint: Back Pain/Injury Stated Complaint: burning and cramping abd lower back, blood in urin Time Seen by Provider: 05/27/23 13:13 Source: patient History of Present Illness HPI Narrative: 53-year-old postmenopausal woman presents to the ED with 2 days of pelvic cramping and vaginal spotting. Patient noted some postmenopausal vaginal spotting, following which she had an ultrasound showing a thickened endometrium which led to a biopsy that was done 6 days ago. Patient states that since then, she had very mild spotting for a couple of days and no cramping. Patient states that starting yesterday she has had increased spotting, color is more bright red, has accompanying pelvic cramping that wraps around to the back. Patient denies fever, chills, nausea, vomiting, dysuria, diarrhea. Related Data Previous Rx's Medication Instructions Recorded amoxicillin 875 mg-potassium 1 tab PO BID #14 tabs 05/14/23 clavulanate 125 mg tablet Allergies Allergy/AdvReac Type Severity Reaction Status Date / Time No Known Drug Allergies Allergy Verified 05/21/23 16:27 Review of Systems <Zahida Pollack PA-C - Last Filed: 05/27/23 17:53> Constitutional Constitutional: Denies chills, Denies fatigue, Denies fever(s), Denies frequent falls, Denies lethargy and Denies weakness Eyes Eyes: Denies change in vision, Denies eye discharge, Denies irritation and Denies loss of vision ENT Ears, Nose, Mouth, and Throat: Denies change in voice, Denies dizziness, Denies neck pain, Denies sore throat and Denies throat swelling Cardiovascular Cardiovascular: Denies chest pain, Denies irregular heart rhythm, Denies lightheadedness, Denies palpitations, Denies dyspnea, Denies dyspnea on exertion and Denies orthopnea Respiratory Respiratory: Denies cough, Denies dyspnea, Denies dyspnea on exertion and Denies wheezing Gastrointestinal Gastrointestinal: Denies abdominal pain, Denies change in bowel habits, Denies diarrhea, Denies nausea and Denies vomiting Genitourinary Genitourinary: Reports abnormal vaginal bleeding and Reports pelvic pain Musculoskeletal Musculoskeletal: Denies neck pain and Denies numbness Integumentary/Breasts Skin/Breast: Denies pruritus, Denies erythema, Denies rash and Denies wounds Neurologic Neurologic: Denies behavioral changes, Denies confusion, Denies dizziness, Denies frequent falls, Denies loss of vision, Denies numbness and Denies weakness Psychiatric Psychiatric: Denies anxiety, Denies behavioral changes, Denies confusion, Denies depression, Denies homicidal ideation and Denies suicidal ideation Endocrine Endocrine: Denies fatigue, Denies flushing and Denies palpitations Hematologic/Lymphatic Hematologic/Lymphatic: Denies easy bruising Allergic/Immunologic Allergic/Immunologic: Denies urticaria, Denies throat swelling and Denies wheezing Patient History <Zahida Pollack PA-C - Last Filed: 05/27/23 17:53> Medical History Biliary colic Hemorrhoid Surgical History H/O tubal ligation Social History Smoking Status: Former smoker alcohol intake: current Smoking Status: Former smoker alcohol intake frequency: holidays/special occasions only Substance Use Type: does not use Exam <Zahida Pollack PA-C - Last Filed: 05/27/23 17:53> Narrative Exam Narrative: Const General:?cooperative, healthy appearing and comfortable [facility] Head:?normal to inspection Ears:?hearing grossly normal bilaterally Nose:?external nose normal Face and sinus:?normal facial exam and sinuses nontender Mouth:?oral mucosae normal Throat:?posterior oropharynx normal Eyes General:?appearance normal, both eyes and all related structures Neck Neck:?normal visual inspection and no lymphadenopathy noted Resp Effort & Inspection:?normal respiratory effort Auscultation:?clear to auscultation bilaterally Cardio Rate:?regular rate Rhythm:?regular rhythm GI Abdomen is soft, nondistended. There is mild right pelvic tenderness. Mild left-sided CVA tenderness. Neuro General:?patient alert, patient awake and patient oriented x3 Initial Vital Signs Initial Vital Signs: Vital Signs Temperature 98.0 F 05/27/23 13:01 Pulse Rate 85 05/27/23 13:01 Respiratory Rate 18 05/27/23 13:01 Blood Pressure 154/84 H 05/27/23 13:01 Pulse Oximetry 100 05/27/23 13:01 Oxygen Delivery Method Room Air 05/27/23 13:01 <DO Lori Willoughby Last Filed: 05/28/23 08:15> Initial Vital Signs Initial Vital Signs: Vital Signs Temperature 98.0 F 05/27/23 13:01 Pulse Rate 85 05/27/23 13:01 Respiratory Rate 18 05/27/23 13:01 Blood Pressure 154/84 H 05/27/23 13:01 Pulse Oximetry 100 05/27/23 13:01 Oxygen Delivery Method Room Air 05/27/23 13:01 Course <Zahida Pollack PA-C - Last Filed: 05/27/23 17:53> Orders Ordered: Discontinued Medications Ketorolac Tromethamine (Ketorolac 30 Mg/Ml Vial) 30 mg IM NOW ONE Stop: 05/27/23 13:34 Last Admin: 05/27/23 14:08 Dose: 30 mg Documented By: RL Vital Signs Vital signs: Vital Signs - 8 hr 05/27/23 13:01 05/27/23 14:30 05/27/23 14:30 Temperature 98.0 F Pulse Rate 85 68 68 Respiratory Rate 18 16 16 Blood Pressure 154/84 H 147/89 H 147/89 H Pulse Oximetry 100 98 97 Oxygen Delivery Method Room Air Room Air Room Air <Sophia Patel DO - Last Filed: 05/28/23 08:15> Orders Ordered: Discontinued Medications Ketorolac Tromethamine (Ketorolac 30 Mg/Ml Vial) 30 mg IM NOW ONE Stop: 05/27/23 13:34 Last Admin: 05/27/23 14:08 Dose: 30 mg Documented By: RL Vital Signs Vital signs: Vital Signs - 8 hr 05/27/23 13:01 05/27/23 14:30 05/27/23 14:30 Temperature 98.0 F Pulse Rate 85 68 68 Respiratory Rate 18 16 16 Blood Pressure 154/84 H 147/89 H 147/89 H Pulse Oximetry 100 98 97 Oxygen Delivery Method Room Air Room Air Room Air MDM - Back Pain/Injury <BAILEE Mayes Last Filed: 05/27/23 17:53> Lab Data Labs: Lab Results 05/27/23 Range/Units 13:45 Urine Color Yellow Urine Appearance Clear Urine pH 7.0 (4.5-8.0) Ur Specific [place] 1.020 (1.000-1.035) Urine Protein Negative (Negative) Urine Glucose (UA) Negative (Negative) g/dL Urine Ketones Negative (NEGATIVE) Urine Occult Blood 1+ H (Negative) Urine Nitrate Positive H (Negative) Urine Bilirubin Negative (NEGATIVE) Urine Urobilinogen 0.2 (0.2) E.U./dL Ur Leukocyte Esterase Negative (NEGATIVE) Urine RBC 1-5/hpf (0-5/HPF) Urine WBC 1-5/hpf (0-5/HPF) Ur Squamous Epith Cells 0-1 /hpf (0-5/HPF) Urine Bacteria Many (>30) H (None) Ur Culture Indicated? Specimen cultured Vol Urine Centrifuged 10ml (spun) MDM Narrative Medical decision making narrative: 53-year-old postmenopausal woman presents to the ED with 2 days of pelvic cramping and vaginal spotting. Patient's OBGYN is Dr. Gillian Hernandez with [facility]. Consulted on-call OBGYN Dr. Jason, who recommends a shot of Toradol today in the ED followed by continued ibuprofen use at home for the bleeding and cramping; no ultrasound recommended today. Patient to call Dr. Veloz his office tomorrow and let them know how she is doing. Given that patient has back pain, will check urine to rule out a UTI. Urine shows bacteriuria but no pyuria, less likely infectious. Discussed findings and plan with patient. ED return precautions discussed with patient. Patient verbalized understanding. Medical records reviewed: Yes <Sophia Patel, - Last Filed: 05/28/23 08:15> Lab Data Labs: Lab Results 05/27/23 Range/Units 13:45 Urine Color Yellow Urine Appearance Clear Urine pH 7.0 (4.5-8.0) Ur Specific [place] 1.020 (1.000-1.035) Urine Protein Negative (Negative) Urine Glucose (UA) Negative (Negative) g/dL Urine Ketones Negative (NEGATIVE) Urine Occult Blood 1+ H (Negative) Urine Nitrate Positive H (Negative) Urine Bilirubin Negative (NEGATIVE) Urine Urobilinogen 0.2 (0.2) E.U./dL Ur Leukocyte Esterase Negative (NEGATIVE) Urine RBC 1-5/hpf (0-5/HPF) Urine WBC 1-5/hpf (0-5/HPF) Ur Squamous Epith Cells 0-1 /hpf (0-5/HPF) Urine Bacteria Many (>30) H (None) Ur Culture Indicated? Specimen cultured Vol Urine Centrifuged 10ml (spun) Discharge Plan Departure Patient Disposition: Home Clinical Impression: Pelvic cramping, Vaginal spotting Instructions: DI for Pelvic Pain Activity Restrictions/Additional Instructions: You were evaluated in the ED today for pelvic cramping and vaginal spotting. We consulted your OBGYN office and spoke with the on-call physician Dr. Jason who recommends Toradol in the ED, followed by ibuprofen at home. You were given Toradol in the ED. You may continue to take 800 mg of ibuprofen with food every 8 hours to control the cramping and bleeding. Please call Dr. Gillian Hernandez' office tomorrow morning and let them know how you are doing. Return to the ED if you have worsening symptoms, persistent vomiting, fever, chills. Prescriptions: No Action amoxicillin-pot clavulanate 875-125 mg tablet 1 tab PO BID Qty: 14 0RF Referrals: Abril Bryan DO [Primary Care Provider] - Stand Alone Forms: Patient Portal/API ED Sign-out <Sophia Patel DO - Last Filed: 05/28/23 08:15> Cosign ED Attending Marlen Attestation: I was immediately available in the department for consultation.
[2023-05-27 13:51] LABS: Appearance Urine UA CLEAR; Bilirubin Urine UA NEGATIVE (NEGATIVE); Color Urine UA YELLOW; Glucose Urine UA NEGATIVE (Negative); Ketones Urine UA NEGATIVE (NEGATIVE); Leukocyte Esterase Urine UA NEGATIVE (NEGATIVE); Nitrite Urine UA POSITIVE (Negative); Occult Blood Urine UA 1+ (Negative); Protein Urine UA NEGATIVE (Negative); Urobilinogen Urine UA 0.2 E.U./dL (0.2)
[2023-05-27] MEDS: KETOROLAC 30 MG/ML VIAL IM (14:08)
[2023-05-27 14:10] LABS: Bacteria Urine Many (>30); Culture Indicated Urine Specimen Cultured; RBC Urine 1-5/HPF (0-5/HPF); Squamous Epithelial Cell Urine 0-1 /HPF (0-5/HPF); Urine Volume 10mL (spun); WBC Urine 1-5/HPF (0-5/HPF)
[2023-05-27 14:30] VITALS: BP 147/89; PULSE 68; RESP 16; O2SAT 97; O2SAT 98
== END 2023-05-27 14:30 | disposition home or self-care (01) ==
PROVIDERS: Emergency Provider Student in an Organized Health Care Education/Training Program; PCP Family Medicine
DX: R25.2 Cramp and spasm (principal); N95.0 Postmenopausal bleeding
CPT/HCPCS: 81001; 87077; 87086; 87186; 96372; 99283; 99284; J1885

== ENCOUNTER 2023-06-23 13:54 | Day surgery (SDC) | payer OTHER, SELFPAY ==
[2023-06-19 09:37] VITALS: BMI 24.4
--- NOTE | 2023-06-23 | PATH_ITS ---
[facility] Accession Number: [id number] No. of containers..01 Tissue . 01 Material submitted: . endometrium - ENDOMETRIAL CURETTINGS . 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 [facility] 06/26/2023 1001 Local . 01 Comment: As part of routine quality compliance coordinator, this case was also reviewed by Dr. Aldo Olivares (Julie), who agrees with the interpretation. . 01 Electronically signed: . Denisa Moreno MD, Pathologist NPI- [id number] . 01 Gross description: . ENDOMETRIAL CURETTINGS: Received in formalin are minute fragments of mucoid and hemorrhagic material measuring 2.5 x 2.5 x 0.4 cm in aggregate. Submitted in toto in 2 cassettes. /GINA 06/24/20234 Local . 01 Pathologist provided ICD-10: N85.02, N84.0 . 01 CPT . 650943 Specimen Comment: A courtesy copy of this report has been sent to [facility] Pathology Performed at: 01 [facility] [address] [place] [address], [place], [place] [id number] MD Kevin Thompson MD Phone: [phone]
[2023-06-23 14:16] VITALS: BP 150/96; PULSE 109; RESP 20; TEMP 36.4; O2SAT 98; BMI 24.4
[2023-06-23] MEDS: LACTATED RINGERS 1,000 ML 42 ML IV (14:21)
--- NOTE | 2023-06-23 15:25 | PM.PREOP ---
Pre-operative Note Interval Note History & Physical reviewed/Exam performed by Physician: Yes Changes to H&P: No H&P completed within 30 days and has changed as indicated here:: See H&P from 06/11/23.
--- NOTE | 2023-06-23 15:52 | SUR.OPER ---
Lithotomy on padded OR bed, head on pillow, arms secured on padded arm boards at <90 degrees abduction. Legs secured in padded yellow fins stirrups.
[2023-06-23 16:00] VITALS: BP 142/99; PULSE 73; RESP 16; O2SAT 98
--- NOTE | 2023-06-23 16:14 | PM.OP.1 ---
Operative Date/Time/Diagnoses Date of procedure: 06/23/23 Time of procedure: 16:14 Pre-op diagnosis: Endometrial intraepithelial neoplasia Post-op diagnosis: same Procedure & Clinicians Procedure: Diagnostic hysteroscopy Dilation and curettage Same procedure as scheduled: Yes Indications: Endometrial intraepithelial neoplasia Surgeon: Gillian Hernandez Click Yes if Unassisted: Yes Anesthesia Type: MAC +/- and Sedation Operative Notes Findings: Thickened endometrial lining. No obvious uterine masses or lesions noted. Specimen(s): other (endometrial currettings) Estimated Blood Loss (mL): 20 Procedure in detail: The risks, benefits, indications and alternatives of the procedure were reviewed with the patient and informed consent was obtained. The pt was taken to the operating room where MAC was obtained without difficulty. The pt was then placed in the low lithotomy position using gel-padded Max stirrups. Sequential compression devices were placed bilaterally for VTE prophylaxis. The pt was then prepped and draped in the sterile fashion. A sterile speculum was placed in the patient?s vagina and the cervix was visualized. A single tooth tenaculum was used to grasp the anterior lip of the cervix. The cervix was then gently, dilated to a size 8 Hegar dilator. The MyoSure hysteroscope was first primed and pressure set. The operative hysteroscope was then advanced through the endocervical canal under direct visualization. The uterus was distended with warm saline, and notable for the above findings. The Myosure Reach was then inserted into the operative hysteroscope. Global endometrial sampling was then performed. The operative hysteroscope was then removed under direct visualization. Tissue obtained was sent to pathology for review. The single tooth tenaculum was removed from the anterior lip of the cervix. The tenaculum site was noted to be hemostatic after direct pressure and silver nitrate was applied. All instruments were then removed from the patient?s vagina. Hysteroscopic fluid deficit was 50cc of normal saline. The patient tolerated the procedure well. At the completion of the case the sponge and needle counts were correct x 2. The patient was taken to the PACU in stable condition. Complications: none Post-operative Condition: stable Disposition: PACU Plan for aftercare: Discharge to home once patient is meeting all discharge criteria.
[2023-06-23 16:20] VITALS: BP 117/86; PULSE 72; RESP 16; TEMP 36.3; O2SAT 97
[2023-06-23 16:25] VITALS: BP 138/99; PULSE 77; RESP 16; O2SAT 98
[2023-06-23 16:35] VITALS: BP 138/82; PULSE 78; RESP 16; O2SAT 99
[2023-06-23] MEDS: OXYCODONE IR 5 MG TABLET PO (16:42)
[2023-06-23 16:50] VITALS: BP 128/81; PULSE 80; RESP 16; O2SAT 99
== END 2023-06-23 16:50 | disposition home or self-care (01) ==
PROVIDERS: PCP Family Medicine; Referring Provider Student in an Organized Health Care Education/Training Program; Visit Provider Student in an Organized Health Care Education/Training Program
PROC: 0UDB8ZZ Extraction of Endometrium, Via Natural or Artificial Opening Endoscopic (ICD-10-PCS; CPT 58558; principal; 2023-06-23 15:15)
DX: N85.02 Endometrial intraepithelial neoplasia [EIN] (principal)
CPT/HCPCS: 58558; J1885; J2250; J2704; J3010

== ENCOUNTER → 2023-07-02 16:37 | Outpatient (CLI) | payer OTHER, SELFPAY ==
[2023-07-02 18:34] LABS: Influenza A - CEPHEID Flu A NEGATIVE (NEGATIVE); Influenza B - CEPHEID Flu B NEGATIVE (NEGATIVE); Respiratory Syncytial Virus Negative (Negative)
[2023-07-02 18:38] LABS: COVID-19 CEPHEID 4-PLEX PCR Negative (Negative)
== END ==
PROVIDERS: PCP Family Medicine; Visit Provider Physician Assistant
DX: R05.9 Cough, unspecified (principal)
CPT/HCPCS: 0241U

== ENCOUNTER → 2023-09-01 16:15 | Outpatient (CLI) | payer OTHER, SELFPAY ==
--- NOTE | 2023-09-01 16:16 | DI.MG.S_ITS ---
BILATERAL DIGITAL SCREENING MAMMOGRAM 3D/2D WITH CAD: 09/01/2023 CLINICAL: Routine screening. Comparison is made to exam dated: 08/25/2013 mammogram - [facility]. Both breasts are heterogeneously dense, which may obscure small masses (category c / 51-75% glandular tissue). Current study was also evaluated with a Computer Aided Detection (CAD) system. No significant masses, calcifications, or other findings are seen in either breast. There has been no significant interval change. IMPRESSION: NEGATIVE There is no mammographic evidence of malignancy. A 1 year screening mammogram is recommended. Based on the Tyrer Cuzick model (a risk assessment model) the patient's lifetime risk is 9.9% and her 10 year risk is 2.8%. According to the ACR, ACS, and NCCN guidelines, an annual breast MRI exam along with mammogram is recommended if the patient's lifetime risk is 20% or greater. This exam was interpreted at Station ID: [id number]. NOTE: For mammograms, a report in lay terms will be sent to the patient. Approximately 15% of breast malignancies will not be visualized mammographically. In the management of a palpable breast mass, a negative mammogram must not discourage biopsy of a clinically suspicious lesion. Electronically Signed By: Sesar rush/humble:09/02/2023 08:40:07 letter sent: Normal Exam ACR BI-RADS Category 1: Negative [id number]
== END ==
PROVIDERS: PCP Family Medicine; Referring Provider Family Medicine; Visit Provider Family Medicine
DX: Z12.31 Encounter for screening mammogram for malignant neoplasm of breast (principal); R92.333 Mammographic heterogeneous density, bilateral breasts
CPT/HCPCS: 77063; 77067

== ENCOUNTER 2023-09-08 12:23 | Day surgery (SDC) | payer OTHER, SELFPAY ==
[2023-09-01 15:13] VITALS: BMI 24.4
[2023-09-08] VITALS (12 sets, daily range): BP systolic 113–160; BP diastolic 68–97; PULSE 79–113; RESP 12–18; TEMP 35.9–36.7; O2SAT 94–100; BMI 24.6
--- NOTE | 2023-09-08 | PATH_ITS ---
[facility] [place] Accession Number: [id number] No. of containers..01 Tissue . 01 Material submitted: . uterus - UTERUS, CERVIX, BILATERAL FALLOPIAN TUBES AND OVARIES . 01 Diagnosis: UTERUS, CERVIX, BILATERAL FALLOPIAN TUBES, AND OVARIES, LAPAROSCOPIC TOTAL HYSTERECTOMY (WEIGHT 92 GRAMS): Cervix with no significant histomorphologic abnormlity. Endocervix with no significant histomorphologic abnormality. Lower uterine segment with no significant histomorphologic abnormality. Poorly preserved endometrium with no residual polyp identified; one minute focus concerning for possible residual endometrioid intraepithelial neoplasia; please see comment. Myometrium involved by adenomyosis. Uterine serosa with no significant histomorphologic abnormality. Ovaries with patchy hyperthecosis and otherwise no significant histomorphologic abnormality. Right fallopian tube, complete cross-sections; one benign paratubal cyst (8 mm); negative for significant atypia. No well-preserved left fallopian tube identified (metal clip in left paratubal tissue identified at gross examination). [facility] 09/17/2023 1355 Local . 01 Comment: As part of routine quality worker, parts of this case were also reviewed by Dr. Gillian Olivares, who agrees with the interpretation. . Dr. Jeana Espinosa called Dr. Veloz' nurse (Sol) on 09/16/2023 at approximately 10:27 am to convey the information that no left fallopian tube is identified. Metal clip is present in the area. . This patient's previous endometrial biopsies are reviewed ([id number] and [id number]). The most recent specimen demonstrates background polyp fragments, suggestive of EIN possibly arising in an endometrial polyp. While no residual polyp is identified, there is a microscopic focus, in a poorly preserved region of endometrium, that has histologic changes of glandular crowding suggestive of residual EIN. . 01 Electronically signed: . Jeana Espinosa MD, Pathologist NPI- [id number] . 01 Gross description: . Received in formalin with two patient identifiers and consists of a 92-gram uterus with attached cervix and bilateral adnexa. The uterine corpus measures 7.5 x 5.0 x 3.5 cm and is surfaced by a smooth, white, glistening serosal surface. The posterior aspect is inked blue, and the anterior aspect is inked orange. There is a 3.0 x 2.5 cm attached cervix with a smooth, white, glistening, unremarkable ectocervix. The endocervical canal is mcgee, trabeculated, and free of exophytic lesions. The myometrial wall is mcgee-pink, trabeculated, measuring up to 1.4 cm in thickness. The posterior myometrium has a 1.5 x 1.0 x 0.6 cm area of myometrial hemorrhage and cystic change. The endometrium is red-mcgee, finely granular, averaging 0.2 cm in thickness. No mucosal abnormalities are appreciated. The right ovary measures 2.5 x 1.5 x 1.0 cm (7 grams), and has a white, lobulated serosal surface with a white, homogeneous ovarian parenchyma, and the right accompanying fimbriated fallopian tube measures 2.8 cm in length by 0.5 cm in diameter, and has a 0.3 cm stellate lumen, the tube also has a 0.8 cm in greatest dimension simple serous fluid-filled paratubal cyst. The left ovary measures 2.4 x 1.5 x 0.8 cm (5 grams), and has a white, lobulated serosal surface with a white, homogeneous ovarian parenchyma. There is no distinct left fallopian tube; however, there is a 1.1 x 0.4 x 0.2 cm metallic metal clamp attached to possible paratubal tissue. Family Service Worker sections are submitted as follows: . A1: Posterior cervix. A2: Posterior lower uterine segment. A3: Anterior cervix. A4: Lower uterine segment. A5: Full thickness endomyometrium to include myometrial hemorrhage and cystic change from posterior wall. A6: Full thickness endomyometrium from anterior wall. A7-A8: Endometrium sequentially submitted from lower uterine segment to fundus, respectively, from posterior wall. A9: Full thickness endomyometrium anterior wall. A10-A12: Endometrium from lower uterine segments to fundus, respectively, from anterior wall. A13: Right ovary. A14: Right fallopian tube to include entire fimbriated end and paratubal cyst. A15: Left ovary. A16: Left paratubal tissue surrounding metallic clip. ([id number]) /MRV 09/16/2023 1033 Local . 01 Pathologist provided ICD-10: N84.1, N85.02 . 01 CPT . 934414 Specimen Comment: A courtesy copy of this report has been sent to [facility] Performed at: 01 [facility] [address] [place] [address], [place], [place] [id number] MD Kevin Thompson MD Phone: [phone]
[2023-09-08] MEDS: LACTATED RINGERS 1,000 ML 21 ML IV ×3 (12:43→14:46)
[2023-09-08 12:52] LABS: Add Manual Diff / Slide Review NO; Basophils Absolute Auto 0 /uL (0-100); Basophils Percent Auto 0.4 % (0-2); Eosinophils Absolute Auto 500 /uL (0-450); Eosinophils Percent Auto 8.3 % (2-4); Hematocrit 40.5 % (36-46); Hemoglobin 13.8 g/dL (12.0-16.0); Lymphocytes Absolute Auto 1800 /uL (1100-4500); Lymphocytes Percent Auto 30.4 % (25-40); Mean Corpuscular Hemoglobin 31.4 PG (26-34); Mean Corpuscular Volume 92.3 fL (80-100); Monocytes Absolute Auto 500 /uL (0-900); Monocytes Percent Auto 8.1 % (3-14); Neutrophils Absolute Auto 3100 /uL (1500-7000); Neutrophils Percent Auto 52.8 % (50-75); Platelet Count 240 X10^3/uL (150-400); Red Blood Cell Count 4.39 X10^6/uL (4.0-5.2); Red Cell Distribution Width 12.5 % (11.6-14.8); White Blood Cell Count 5.8 X10^3/uL (4.5-11.0)
--- NOTE | 2023-09-08 13:01 | PM.PREOP ---
Pre-operative Note Interval Note History & Physical reviewed/Exam performed by Physician: Yes Changes to H&P: No H&P completed within 30 days and has changed as indicated here:: see H&P from 09/02/23
[2023-09-08] MEDS: CEFAZOLIN 2 GM/100 ML PREMIX 100 ML IV (13:45)
[2023-09-08] MEDS: BUPIVACAINE 0.25% (PF) VIAL 30 ML INJ (14:13)
--- NOTE | 2023-09-08 14:33 | SUR.OPER ---
Lithotomy on padded OR bed. [place] Pad Positioner under torso. Head on pillow, arms padded and tucked at sides. Legs secured in padded yellow fins stirrups.
--- NOTE | 2023-09-08 16:27 | P.OP_ITS ---
Operative Date/Time/Diagnoses Date of procedure: 09/08/23 Time of procedure: 14:00 Pre-op diagnosis: Endometrial intraepithelial neoplasia Post-op diagnosis: same Procedure & Clinicians Procedure: Total laparoscopic hysterectomy Bilateral salpingo-oophorectomy Cystoscopy Same procedure as scheduled: Yes Surgeon: Gillian Hernandez Director Cloud Transformation: Fara Lazcano Anesthesia Type: General Operative Notes Findings: Normal appearing uterus and bilateral ovaries. Bilateral fallopian tubes with post-ligation appearance. Liver edge with some scarring noted. Closure Type: primary Specimen(s): other (uterus, cervix, bilateral fallopian tubes, bilateral ovaries) Applied: catheter Estimated Blood Loss (mL): 100 Blood products transfused: none Procedure in detail: The risks, benefits, indications and alternatives of the procedure were reviewed with the patient and informed consent was obtained. The pt was taken to the operating room where general anesthesia was obtained without difficulty. The pt was then placed in the low lithotomy position using Max Stirrups and arms were tucked with padding. Sequential compression devices were placed bilaterally for VTE prophylaxis. She was then prepped and draped in the sterile fashion and a Wilhelm catheter was placed. She received 2g Ancef for surgical prophylaxis. A Purplle-care uterine manipulator was placed through the cervix into the uterus for uterine manipulation. Attention was then turned to the patient?s abdomen were a 5mm skin incision was made in the superior aspect of the umbilicus after injecting 0.25% Marcaine. A 5mm trocar and sleeve were then carefully introduced into the peritoneal cavity under direct visualization at a 90-degree angle while tenting up the abdominal wall. Intra-peritoneal placement was confirmed under direct visualization with the laparoscope with entry pressure <5 mmHg. A pneumoperitoneum was obtained with several liters of CO2 gas, maximum pressure of 15 mmHg. Upon entry into the peritoneal cavity, structures immediately below the incision were inspected and found to be free of injury. A survey of the patient's abdomen and pelvis was notable for the above findings. Three additional 5mm port sites, one in the right lateral side and two in the left lateral side, were placed under direct laparoscopic guidance. The Powerseal device was used to clamp, cut, and ligate the left infundibulopelvic ligament. The same procedure was done on the right side. The fallopian tube segments were incorporated in the surgical specimen. The utero- ovarian and round ligaments were then clamped, cut, and ligated bilaterally. The anterior broad ligament was then incised along the bladder reflection bilaterally and the bladder was dissected off the lower uterine segment until endopelvic fascia was visualized. The uterine arteries were then identified, skeletonized, and ligated. The uterosacral ligaments and cardinal ligaments were transected bilaterally. The anterior colpotomy was then made using the Bovie L-hook and continued circumferentially inferior to the cervix using the colpotomy ring as a guide. The entire cervix and uterus was then successfully amputated and delivered through the vagina. The right cardinal ligament was bleeding, thus this was carefully ligated and cauterized with the Powerseal. Excellent hemostasis was noted. The 0 Stratafix suture was then introduced into the abdominal cavity via the vagina. The vaginal cuff was then closed laparoscopically with the barbed suture in a running fashion. The suture needle was removed via the lateral port under direct visualization. The wilhelm catheter was then removed, and the cystoscope was then primed and advanced through the urethra and into the bladder. Both ureteral orifices were identified and bilateral efflux of urine was visualized. A survey of the bladder however showed 2 throws of the Stratafix suture. The cystoscope was removed, and a speculum was placed in the vagina. The middle of the colpotomy suture was cut and removed. The cystoscope was then reintroduced into the bladder and showed removal of the suture, as well as small <2mm hemostatic bladder defects, thus this will be managed expectantly. The vaginal cuff defect was then repaired vaginally with 0-vicryl in a series of interrupted sutures. The cystoscope was again reintroduced and showed no suture in the bladder. The wilhelm catheter was then replaced into the bladder. Attention was then returned to the abdomen, where the pelvis was then irrigated. Excellent hemostasis was noted, and the vaginal cuff repair was intact. The pneumoperitoneum was then released, and the remaining ports were removed. The skin incisions were then reapproximated using 4-0 monocryl suture in a subcuticular fashion and covered with Dermabond. At the completion of the case the sponge and needle counts were correct x 2. The patient was taken to the PACU in stable condition. Complications: none Post-operative Condition: stable Disposition: PACU Plan for aftercare: Plan for overnight admission with discharge in the morning.
[2023-09-08] MEDS: OXYCODONE/ACETAMINOPHEN 5/325 TABLET 1 TAB PO (17:02)
[2023-09-08] MEDS: GENTAMICIN 0.3% OPHTH 5 ML 1 DROPS EYE-RIGHT ×2 (17:11→21:16)
[2023-09-08] MEDS: MINERAL OIL/PETROL OPHTH OINT 3.5 GM 1 APPLIC EYE-RIGHT (17:57)
--- NOTE | 2023-09-08 18:11 | PC.NURSE ---
Patient oriented to her room. Per Pacu report patient may have obtained an abrasion to her r.eyeball. She has ointment in her eyes, and some lubricating drops. She is not opening her eyes at this time. No scratch seen at this time. She has 4 small lap sites that are open to air with durmobond in place. Patient has a wilhelm catheter as she has some sutures in her bladder. There is no packing in her vagina. She was given percocet, and iv toradol down in pacu around 1600 and will be given tylenol soon. She is resting and talking with her daughter now.
[2023-09-08] MEDS: ACETAMINOPHEN 325 MG TABLET 650 MG PO ×2 (18:26→23:14)
[2023-09-08] MEDS: DOCUSATE 100 MG CAPSULE 200 MG PO (21:16)
[2023-09-08] MEDS: OXYCODONE IR 5 MG TABLET PO (21:16)
[2023-09-08] MEDS: KETOROLAC 30 MG/ML VIAL IV (23:13)
--- NOTE | 2023-09-08 23:42 | PC.NURSE ---
Addendum entered by Nathalia Gann R.N. 09/09/23 06:08: Hong d/c'd @ 0600 per order Original Note: scene shifter: Patient is AxOx4, VSS. Complaints of cramping sensation in abdomen & irritation in right eye, medicated as ordered. Hong in place, patent and draining yellow urine. Small amount of serosanguinous drainage noted on pad. Stood at bedside w/ 1PA to stretch legs, patient back in bed, SCDs are on. Ate soup brought by family, denies N/V. Oriented to call-light. Plan of care ongoing.
[2023-09-09] MEDS: GENTAMICIN 0.3% OPHTH 5 ML 1 DROPS EYE-RIGHT ×3 (01:31→09:17)
[2023-09-09] MEDS: OXYCODONE IR 5 MG TABLET PO (01:36)
[2023-09-09] MEDS: ACETAMINOPHEN 325 MG TABLET 650 MG PO ×2 (05:52→10:42)
[2023-09-09] MEDS: KETOROLAC 30 MG/ML VIAL IV (05:52)
[2023-09-09 06:13] VITALS: BP 105/61; PULSE 58; RESP 18; TEMP 35.9; O2SAT 96
[2023-09-09 08:36] VITALS: BP 117/72; PULSE 64; RESP 15; TEMP 36.4; O2SAT 96
--- NOTE | 2023-09-09 08:45 | P.DS_ITS ---
History of Present Illness History of Present Illness Date Patient Seen: 09/09/23 Time Patient Seen: 08:45 Chief complaint: Laparoscopic Total Hysterectomy Discharge Providers Provider Discharge Date: 09/09/23 Primary care physician: Abril Bryan DO Discharge provider: Gillian Hernandez DO Summary Hospital Course Discharge Diagnosis: Endometrial intraepithelial neoplasia Postmenopausal bleeding Hospital Course: 53-year-old female admitted on day of surgery for planned total laparoscopic hysterectomy with bilateral salpingo-oophorectomy. Her procedure was uncomplicated. On postop day #1, she was ambulating, tolerating regular diet, voiding spontaneously, with no vaginal bleeding. Thus she was discharged to home on postop day #1. Status at Discharge Cognitive/behavioral status at discharge: oriented Functional status at discharge: independent ambulation Overall status at discharge: patient is progressing back to baseline Time Spent with Patient Time spent: Less than 30 minutes Exam Vital Signs (past 8 hours): - 09/09/23 06:13 09/09/23 08:36 Temperature 96.7 F L 97.5 F L Pulse Rate 58 L 64 Respiratory Rate 18 15 Blood Pressure 105/61 117/72 Pulse Oximetry 96 96 Oxygen Flow Rate 0 0 Oxygen Delivery Method Room Air Oxygen Flow Rate 0 Const General: comfortable Resp Effort & Inspection: normal respiratory effort and able to speak in complete sentences GI Inspection: normal to inspection Palpation: soft and tender (Appropriately) Skin Other: laparoscopic incisions clean/dry/intact with dermabond Neuro Cognition: normal cognition Speech: speech normal Psych Mood: congruent mood Affect: normal affect Objective Labs 09/08/23 06:00 Labs: Laboratory Results - last 24 hr 09/08/23 06:00 WBC 5.8 RBC 4.39 Hgb 13.8 Hct 40.5 MCV 92.3 MCH 31.4 MCHC 34.0 RDW 12.5 Plt Count 240 Neut % (Auto) 52.8 Lymph % (Auto) 30.4 [place] % (Auto) 8.1 Eos % (Auto) 8.3 H Baso % (Auto) 0.4 Neut # (Auto) 3100 Lymph # (Auto) 1800 [place] # (Auto) 500 Eos # (Auto) 500 H Baso # (Auto) 0 PFSH Medical History (Updated 09/02/23 @ 14:50 by Gillian Hernandez DO) Endometrial intraepithelial neoplasia (EIN) Biliary colic Hemorrhoid Surgical History History of hysteroscopy (06/23/23) Hx laparoscopic cholecystectomy (01/04/22) H/O tubal ligation Social History household members: family Smoking Status: Former smoker alcohol intake: current Discharge Assessment & Plan Assessment and Plan Assessment: 53yo F s/p TLH/BSO for EIN, meeting discharge criteria on postop day #1. Plan of Treatment: Discharge to home Discharge Plan Discharge Plan Patient Disposition: Home Provider Discharge Comment: Take ibuprofen 600-800 mg every 6 hours, and acetaminophen 650 mg every 6 hours as needed. Use oxycodone 5 mg every 4 hours as needed for breakthrough pain. Avoid lifting over 20 lb for at least 4 weeks. Avoid placing anything in the vagina for 6 weeks. Discharge orders & Medications Discharge Orders: Discharge (Order); Ordered 09/09/23 Ordered By: Gillian Hernandez Prescriptions: New oxycodone 5 mg Tablet 5 mg PO Q4HR PRN (Reason: Pain, Moderate (4-6)) Qty: 10 0RF Discontinued megestrol 40 mg tablet 80 mg PO BID Qty: 120 1RF Follow up/Referrals: Gillian Hernandez DO [Physician] - Diet/Activity/Treatments Diet: Diet as Tolerated Activity: As tolerated. Skin/Wound/Dressing Care Skin care: You may shower normally. The skin glue will peel off in about 1 week. Report to your healthcare provider any signs of infection, such as:: chills, fever, increased pain, unusual drainage and unusual redness Visit Report/Discharge Packet Instructions: DI for Hysterectomy, DI for Laparoscopy, DI for Prescription Opioid Use Stand Alone Forms: Patient Portal/API Discharge Data Primary Care Provider: Abril Bryan Attending Provider: Gillian Hernandez Quality VTE Deep Vein Thrombosis/Pulmonary Embolism Present on Admission: No
[2023-09-09] MEDS: DOCUSATE 100 MG CAPSULE 200 MG PO (09:17)
--- NOTE | 2023-09-09 09:46 | PC.NURSE ---
Patient states that she is feeling better today. She has 4 lap incisions that are all open to air and durmobonded. She is wearing a per pad and she has no bleeding this morning. Her wilhelm catheter was taken out at 0600 and she has already voided this morning. Patient obtained a scratch to her r.eye or an irritation when she was in surgery, she is now able to open her eye up and the gentamycin drops have been helping her. Patients daughter is in her room and she will be taking her home today.
--- NOTE | 2023-09-09 14:32 | CM.DANOTE ---
Patient is a 53 yo female who was admitted on 09/08/23 for Lap Total Hysterectomy. Pt has [employer] for insurance and her PCP is Abril Bryan. EMR was reviewed. Per OBGYN, pt tolerated her hysterectomy well and now ambulating, tolerating her diet, voiding independently and medically stable to d/c home today with outpt f/u and no identified barriers to discharge. Patient lives in [place] with her spouse and is independent at baseline, works in [employer], and drives and denies hx of HH or SNF. Pt preference is home today via Dtr POV and does not anticipate any discharge planning needs. Plan: Patient to discharge home today via family POV and outpt f/u and no further SW needs at this time. VIRY Carson Discharge Planning/Care Management Pre-Anesthesia Assessment Start: 09/01/23 15:12 Freq: Status: Discharge Protocol: Document 09/01/23 15:13 CAB (Rec: 09/01/23 15:17 CAB [id number]) Pre-Anesthesia Assessment Patient Information Reviewed Via Chart Review Primary Care Provider Abril Bryan Seen Specialist in Last 12 Months Yes Specialist Seen Emergency,Senior Solutions Engineer Primary Language Setswana Hot Top Liner Required No Height 160.02 cm Weight 62.56 kg Body Mass Index (BMI) 24.4 Barriers to Learning None Hx Anesthesia Reactions No Hx Family Anesthesia Reaction No Hx Malignant Hyperthermia No Hx Blood Transfusions No Hx Blood Transfusion Reaction No Anesthesia Review Requested No Emergency Medicine No alcohol intake current alcohol intake frequency holidays/special occasions only Smoking Status Former smoker Substance Use Type does not use History of Falling (Recent or History of No ) Patient is completely paralyzed or No completely immobile Mental Status Oriented to own ability Is patient on oxygen? No Hx Sleep Apnea No CPAP/BIPAP use not prescribed Currently Taking a Beta Olvin No Anti-Coagulant Therapy No Cardiac Testing No Hx Pacemaker/ICD No Pacemaker Rep Required? No Cardiac Clearance Received No Urinary Catheter Present No Hx Urinary Self Catheterization No Diabetes No Patient No Lactating No Presence of External or Internal Medical No Devices Received a COVID vaccine? Yes Marital Status Single Lives With family Patient Discharge Plan Description Return Home Advance Directives? No
== END 2023-09-09 10:49 | disposition home or self-care (01) ==
LOC: OR 12:29 → AC 17:37
PROVIDERS: PCP Family Medicine; Referring Provider Student in an Organized Health Care Education/Training Program; Visit Provider Student in an Organized Health Care Education/Training Program
PROC: 0UT94ZZ Resection of Uterus, Percutaneous Endoscopic Approach (ICD-10-PCS; CPT 58571; principal; 2023-09-08 14:00)
DX: N80.03 Adenomyosis of the uterus (principal); N83.8 Other noninflammatory disorders of ovary, fallopian tube and broad ligament
CPT/HCPCS: 58571; 85025; J0330; J0690; J1100; J1885; J2250; J2405; J2704; J3010

== ENCOUNTER → 2023-09-18 12:51 | Outpatient (CLI) | payer OTHER, SELFPAY ==
[2023-09-08 17:40] VITALS: BMI 24.6
[2023-09-18 14:43] LABS: Appearance Urine UA CLEAR; Bilirubin Urine UA NEGATIVE (NEGATIVE); Color Urine UA YELLOW; Glucose Urine UA NEGATIVE (Negative); Ketones Urine UA NEGATIVE (NEGATIVE); Leukocyte Esterase Urine UA TRACE (NEGATIVE); Nitrite Urine UA NEGATIVE (Negative); Occult Blood Urine UA 2+ (Negative); Protein Urine UA NEGATIVE (Negative); Specific Gravity Urine UA <=1.005 (1.000-1.035); Urobilinogen Urine UA 0.2 E.U./dL (0.2); pH Urine UA 5.5 (4.5-8.0)
[2023-09-18 14:55] LABS: RBC Urine 5-10/HPF (0-5/HPF); Urine Volume 10mL (spun); WBC Urine 1-5/HPF (0-5/HPF)
[2023-09-18 14:56] LABS: Bacteria Urine None Seen; Squamous Epithelial Cell Urine 0-1 /HPF (0-5/HPF)
== END ==
PROVIDERS: PCP Family Medicine; Referring Provider Student in an Organized Health Care Education/Training Program; Visit Provider Student in an Organized Health Care Education/Training Program
DX: R35.0 Frequency of micturition (principal); R39.15 Urgency of urination; R30.0 Dysuria
CPT/HCPCS: 81001; 87086

== ENCOUNTER → 2023-09-23 09:42 | Outpatient (CLI) | payer OTHER, SELFPAY ==
[2023-09-08 17:40] VITALS: BMI 24.6
[2023-09-23 11:15] LABS: Add Manual Diff / Slide Review NO; Basophils Absolute Auto 0 /uL (0-100); Basophils Percent Auto 0.5 % (0-2); Eosinophils Absolute Auto 600 /uL (0-450); Eosinophils Percent Auto 8.1 % (2-4); Hematocrit 40.7 % (36-46); Hemoglobin 13.9 g/dL (12.0-16.0); Lymphocytes Absolute Auto 1700 /uL (1100-4500); Lymphocytes Percent Auto 22.2 % (25-40); Mean Corpuscular HGB Conc 34.1 % (30-36); Mean Corpuscular Hemoglobin 31.2 PG (26-34); Mean Corpuscular Volume 91.5 fL (80-100); Monocytes Absolute Auto 600 /uL (0-900); Monocytes Percent Auto 7.5 % (3-14); Neutrophils Absolute Auto 4700 /uL (1500-7000); Neutrophils Percent Auto 61.7 % (50-75); Platelet Count 309 X10^3/uL (150-400); Red Blood Cell Count 4.45 X10^6/uL (4.0-5.2); Red Cell Distribution Width 12.3 % (11.6-14.8); White Blood Cell Count 7.6 X10^3/uL (4.5-11.0)
[2023-09-23 11:52] LABS: Erythrocyte Sedimentation Rate 7 MM/HR (0-20)
== END ==
PROVIDERS: PCP Family Medicine; Referring Provider Student in an Organized Health Care Education/Training Program; Visit Provider Student in an Organized Health Care Education/Training Program
DX: G89.18 Other acute postprocedural pain (principal)
CPT/HCPCS: 36415; 85025; 85651

== ENCOUNTER → 2023-09-23 13:19 | Outpatient (CLI) | payer OTHER, SELFPAY ==
[2023-09-08 17:40] VITALS: BMI 24.6
--- NOTE | 2023-09-23 13:20 | DI.CT.S_ITS ---
PROCEDURE: CT ABDOMEN PELVIS W CON INDICATIONS: R/O Post op infection TECHNIQUE: After the administration of intravenous contrast, axial sections acquired from the lung bases to the pubic symphysis. Coronal and sagittal reformats were performed. For radiation dose reduction, the following was used: automated exposure control, adjustment of mA and/or kV according to patient size. COMPARISON: [facility], CT, CT ABDOMEN PELVIS W CON, 05/12/2023, 17:21. FINDINGS: Image quality: Diagnostic. Lower Chest: No significant findings. ABDOMEN: Liver: No solid mass. Gallbladder: Surgically absent. Biliary ducts: No biliary dilation. Pancreas: No ductal dilation. Spleen: Size is within normal limits. Adrenal Glands: No adrenal nodules. Kidneys and Ureters: No hydronephrosis. No solid mass. No complex renal cystic lesion which requires follow up. Stomach and Bowel: Normal colonic caliber, without significant wall thickening. The appendix is thin walled and gas filled. Peritoneum: No abnormal intraperitoneal fluid. No free air. Ventral Wall: No significant ventral hernia. Abdominal Nodes: No retroperitoneal or mesenteric adenopathy by size criteria. Vessels: Aorta and inferior vena cava are normal in size. PELVIS: Pelvic Organs: Unremarkable. Bladder: No bladder wall thickening, accounting for underdistention. Pelvic Nodes: No enlarged lymph nodes. Miscellaneous: No inguinal hernias are seen. Bones: No aggressive osseous abnormality. IMPRESSION: 1. No acute intra-abdominal findings. Specifically, no suspicious fluid collections to suggest postoperative hematoma, seroma, or abscess. 2. Normal appendix. Dictated by: Nisreen Pressley M.D. on 09/23/2023 at 15:11 Approved by: Nisreen Pressley M.D. on 09/23/2023 at 15:15
== END ==
PROVIDERS: PCP Family Medicine; Referring Provider Student in an Organized Health Care Education/Training Program; Visit Provider Student in an Organized Health Care Education/Training Program
DX: G89.18 Other acute postprocedural pain (principal); Z90.49 Acquired absence of other specified parts of digestive tract
CPT/HCPCS: 36415; 74177; 85025; 85651; Q9967